=== PATIENT | male | born 1960 | race Caucasian/White ===

== ENCOUNTER 2019-02-20 18:03 | Emergency (ER) | payer BC, OTHER ==
[~2019-02-20] VITALS: Ht 190.5 cm; Wt 113.4 kg
--- OUTSIDE RECORDS SUMMARY | ~2019-02-20 | XMS | Encounter Summary ---
Demographics + + + | Address | [address] | | | [place] [address] | + + + | Home Phone | | + + + | Preferred Language | Unknown | + + + | Marital Status | | + + + | Mandaen Affiliation | Unknown | + + + | Race | Unknown | + + + | Ethnic Group | Unknown | + + + Author + + + | Author | [facility] | | | and [place] | + + + | Organization | [facility] | | | and [place] | + + + | Address | Unknown | + + + | Phone | Unavailable | + + + Support + + +---------+ + | Name | Relationship | Address | Phone | + + +---------+ + | Dio Filkins | ECON | Unknown | | + + +---------+ + | Dio Rivera | ECON | Unknown | | + + +---------+ + Care Team Providers + +------+ + | Care Photographic Equipment Inspector Name | Role | Phone | + +------+ + | Edgardo Boone DO | PCP | | + +------+ + Reason for Visit + + + | Reason | Comments | + + + | Medication Refill | | + + + Encounter Details +--------+--------+ + + + | Date | Type | Department | Care Team | Description | +--------+--------+ + + + | 08/14/ | Refill | [facility] | Edgardo Boone | Medication Refill | | 2018 | | [facility] | E, DO [address] | | | | | MEDICAL CLIN[address] | [place], [place] | | | | | [address] [place], | [address] | | | | | [place] [address] | [phone] | | | | | [phone] | | | +--------+--------+ + + + Social History + +-------+ +--------+------+ | Tobacco Use | Types | Packs/Day | Years | Date | | | | | Used | | + +-------+ +--------+------+ | Never Smoker | | | | | + +-------+ +--------+------+ + +---+---+---+ | Smokeless Tobacco: | | | | | Never Used | | | | + +---+---+---+ + + +---------+ + | Alcohol Use | Drinks/Week | oz/Week | Comments | + + +---------+ + | No | 1 Glasses of wine | 1.0 | 1/2 glass of wine | | | | | daily | + + +---------+ + + + + | Sex Assigned at | Date Recorded | | | | + + + | Not on file | | + + + + + + + | Job Start Date | Occupation | Industry | + + + + | Not on file | Not on file | Not on file | + + + + + + + + | Travel History | Travel Start | Travel End | + + + + + + | No recent travel history available. | + + documented as of this encounter Plan of Treatment + +------+--------+ + + | Name | Type | Priori | Associated Diagnoses | Order Schedule | | | | ty | | | + +------+--------+ + + | Comprehensive | Lab | Routin | Benign | 1 Occurrences | | Metabolic Panel | | e | hypertension | starting 08/14/2018 | | | | | Hyperlipidemia, | until 08/15/2019 | | | | | unspecified | | | | | | hyperlipidemia type | | | | | | Type 2 diabetes | | | | | | mellitus without | | | | | | complication, | | | | | | without long-term | | | | | | current use of | | | | | | insulin ([facility]) | | + +------+--------+ + + | Hemoglobin A1C | Lab | Routin | Type 2 diabetes | 1 Occurrences | | | | e | mellitus without | starting 08/14/2018 | | | | | complication, | until 08/15/2019 | | | | | without long-term | | | | | | current use of | | | | | | insulin ([facility]) | | + +------+--------+ + + | Microalbumin/Creatin | Lab | Routin | Type 2 diabetes | 1 Occurrences | | ine Ratio, Urine | | e | mellitus without | starting 08/14/2018 | | | | | complication, | until 08/15/2019 | | | | | without long-term | | | | | | current use of | | | | | | insulin ([facility]) | | + +------+--------+ + + | CBC with | Lab | Routin | Abnormal blood | 1 Occurrences | | Differential | | e | chemistry Screening | starting 08/14/2018 | | | | | for deficiency | until 08/15/2019 | | | | | anemia | | + +------+--------+ + + | Urinalysis with | Lab | Routin | Type 2 diabetes | 1 Occurrences | | Microscopic with | | e | mellitus without | starting 08/14/2018 | | Culture if Indicated | | | complication, | until 08/15/2019 | | | | | without long-term | | | | | | current use of | | | | | | insulin (HCC) | | | | | | Enlarged prostate | | + +------+--------+ + + | PSA, Screen | Lab | Routin | Enlarged prostate | 1 Occurrences | | | | e | Screening for | starting 08/14/2018 | | | | | prostate cancer | until 08/15/2019 | + +------+--------+ + + documented as of this encounter Procedures + +--------+ + + + | Procedure Name | Priori | Date/Time | Associated Diagnosis | Comments | | | ty | | | | + +--------+ + + + | EXTERNAL LAB: | Routin | 12/19/2017 | | Results for this | | HEMOGLOBIN A1C | e | | | procedure are in the | | | | | | results section. | + +--------+ + + + documented in this encounter Results External Lab: Hemoglobin A1c (12/19/2017) + + + + + + | Component | Value | Ref Range | Performed | Pathologist | | | | | At | Signature | + + + + + + | Hemoglobin | 5.8Comment: [facility] | % | | | | A1c, | | | | | | external | | | | | + + + + + + + + | Specimen | + + | Blood | + + documented in this encounter Visit Diagnoses + + | Diagnosis | + + | Benign hypertension - Primary Essential hypertension, benign | + + | Hyperlipidemia, unspecified hyperlipidemia type | + + | Type 2 diabetes mellitus without complication, without long-term current use of | | insulin (HCC) | + + | Abnormal blood chemistry Other abnormal blood chemistry | + + | Enlarged prostate Hypertrophy of prostate without urinary obstruction and other lower | | urinary tract symptoms (LUTS) | + + | Screening for deficiency anemia Screening for other and unspecified deficiency anemia | + + | Screening for prostate cancer Special screening for malignant neoplasm of prostate | + + documented in this encounter"
--- OUTSIDE RECORDS SUMMARY | ~2019-02-20 | XMS | Encounter Summary ---
Demographics + + + | Address | [address] | | | [place] [address] | + + + | Home Phone | | + + + | Preferred Language | Unknown | + + + | Marital Status | | + + + | Sabianism Affiliation | Unknown | + + + | Race | Unknown | + + + | Ethnic Group | Unknown | + + + Author + + + | Author | [facility] | | | and [place] | + + + | Organization | [facility] | | | and [...] Team Providers + +------+ + | Care Plant Machinist Name | Role | Phone | + [...] Description | +--------+--------+ + + + | 06/02/ | Refill | [facility] | Edgardo Boone | Medication Refill | | 2018 | | [facility] | E, DO [address] | | | | | MEDICAL CL[facility] | [place], [place] | | | | | [address] [place], | [address] | | | | | [place] [address] | [phone] | | | | | [phone] | | | +--------+--------+ + + + [...] as of this encounter Plan of Treatment Not on filedocumented as of this encounter Visit Diagnoses Not on filedocumented in this encounter"
--- OUTSIDE RECORDS SUMMARY | ~2019-02-20 | XMS | Encounter Summary ---
Demographics + + + | Address | [address] | | | [place] [address] | + + + | Home Phone | | + + + | Preferred Language | Unknown | + + + | Marital Status | | + + + | Methodist Affiliation | Unknown | + + + | Race | Unknown | + + + | Ethnic Group | Unknown | + + + Author + + + | Author | [facility] | | | and [place] | + + + | Organization | [facility] | | | and [...] Team Providers + +------+ + | Care Underwriting Clerks Supervisor Name | Role | Phone | + [...] Description | +--------+--------+ + + + | 01/27/ | Refill | [facility] | Pranay Godinez, | Medication Refill | | 2018 | | [facility] | DNP [address] | | | | | MEDICAL CLIN[address] | [place] [address] | | | | | [address] [place], | [phone] | | | | | [place] [address] | | | | | | [phone] | | | +--------+--------+ + + + [...] | | | + +---+---+---+ + + + + + | Alcohol Use | Drinks/Week | oz/Week | Comments | + + + + + | Yes | 0-1 Glasses of | 0.0 - 1.0 | | | | wine | | | + + + + + + + + + | Alcohol Habits | Answer | Date Recorded | + + + + | How often do you have a drink containing | Monthly or less | 08/29/2018 | | alcohol? | | | + + + + | How many drinks containing alcohol do you | 1 or 2 | 08/29/2018 | | have on a typical day when you are | | | | drinking? | | | + + + + | How often do you have six or more drinks on | Never | 08/29/2018 | | one occasion? | | | + + + + + + + | Sex Assigned [...] filedocumented as of this encounter Visit Diagnoses + + | Diagnosis | + + | Benign hypertension Essential hypertension, benign | + + documented in this encounter"
--- OUTSIDE RECORDS SUMMARY | ~2019-02-20 | XMS | Encounter Summary ---
Demographics + + + | Address | [address] | | | [place] [address] | + + + | Home Phone | | + + + | Preferred Language | Unknown | + + + | Marital Status | | + + + | Taoist Affiliation | Unknown | + + + [...] Team Providers + +------+ + | Care Crown Pouncer Name | Role | Phone | + [...] Description | +--------+--------+ + + + | 04/17/ | Refill | [facility] | Dunbar, Azeb Case RN | Medication Refill | | 2018 | | [facility] | | | | | | [facility] [address] | | | | | | [address] [facility], | | | | | | [place] [address] | | | | | | [phone] | | | +--------+--------+ + + + [...]
--- OUTSIDE RECORDS SUMMARY | ~2019-02-20 | XMS | Encounter Summary ---
Demographics + + + | Address | [address] | | | [place] [address] | + + + | Home Phone | | + + + | Preferred Language | Unknown | + + + | Marital Status | | + + + | Mu-Ism Affiliation | Unknown | + + + | Race | Unknown | + + + | Ethnic Group | Unknown | + + + Author + + + | Author | [facility] | | | and [place] | + + + | Organization | [facility] | | [...] Team Providers + +------+ + | Care Superintendent Marine Name | Role | Phone | + +------+ + | Edgardo Boone DO | PCP | | + +------+ + Encounter Details +--------+ + + + + | Date | Type | Department | Care Team | Description | +--------+ + + + + | 01/13/ | Abstract | [facility] | Mely Edgardo | | | 2017 | | [facility] | E, DO [address] | | | | | MEDICAL CLIN[address] | [place], [place] | | | | | [address] [place], | [address] | | | | | [place] [address] | [phone] | | | | | [phone] | | | +--------+ + + + + Social History + +-------+ +--------+------+ | Tobacco Use | Types | Packs/Day | Years | Date | | | | | Used | | + +-------+ +--------+------+ | Never Assessed | | | | | + +-------+ +--------+------+ + + + | Sex Assigned at [...] Not on filedocumented as of this encounter Procedures + +--------+ + + + | Procedure Name | Priori | Date/Time | Associated Diagnosis | Comments | | | ty | | | | + +--------+ + + + | EXTERNAL: | Routin | 04/28/2015 | | Results for this | | COLONOSCOPY | e | | | procedure are in the | | | | | | results section. | + +--------+ + + + documented in this encounter Results EXTERNAL: COLONOSCOPY (04/28/2015) + + + + + + | Component | Value | Ref Range | Performed | Pathologist | | | | | At | Signature | + + + + + + | Colonoscopy | Hyperplastic polyp and | | | | | | left-sided sigmoid | | | | | Impression, | diverticulosisComment: | | | | | External | [facility] | | | | | | [facility] | | | | + + + + + + documented in this encounter Visit Diagnoses Not on filedocumented in this encounter"
--- OUTSIDE RECORDS SUMMARY | ~2019-02-20 | XMS | Clinical Summary ---
Demographics + + + | Address | [address] | | | [place] [address] | + + + | Home Phone | | + + + | Preferred Language | Unknown | + + + | Marital Status | Single | + + + | Yazdanism Affiliation | Unknown | + + + | Race | Unknown | + + + | Ethnic Group | Unknown | + + + Author + + + | Author | [facility] (Historical as of | | | 10-04-18) | + + + | Organization | [facility] (Historical as of | | | 10-04-18) | + + + | Address | Unknown | + + + | Phone | Unavailable | + + + Support + + +---------+ + | Name | Relationship | Address | Phone | + + +---------+ + | Dio Rivera | ECON | Unknown | | + + +---------+ + Care Team Providers + +------+ + | Care Horn Player Name | Role | Phone | + +------+ + | Dr. Dustin | PP | Unavailable | + +------+ + Allergies Not on File Current Medications Not on file Active Problems Not on file Social History + +-------+ +--------+------+ | Tobacco [...] on file | | + + + Plan of Treatment Not on file Results Not on filefrom Last 3 Months"
--- OUTSIDE RECORDS SUMMARY | ~2019-02-20 | XMS | Clinical Summary ---
Demographics + + + | Address | [address] | | | [place] [address] | + + + | Home Phone | | + + + | Preferred Language | Unknown | + + + | Marital Status | Single | + + + | Mosque Affiliation | Unknown | + + + | Race | Unknown | + + + | Ethnic Group | Unknown | + + + Author + + + | Author | [facility] (Historical as of | | | 10-04-18) | + + + | Organization | [facility] (Historical as of | | | 10-04-18) [...] Team Providers + +------+ + | Care Industrial Locomotive Operator Name | Role | Phone | + [...]
--- OUTSIDE RECORDS SUMMARY | ~2019-02-20 | XMS | Encounter Summary ---
Demographics + + + | Address | [address] | | | [place] [address] | + + + | Home Phone | | + + + | Preferred Language | Unknown | + + + | Marital Status | | + + + | Protestant Affiliation | Unknown | + + + | Race | Unknown | + + + | Ethnic Group | Unknown | + + + Author + + + | Author | [facility] | | | and [place] | + + + | Organization | [facility] | | | [...] Team Providers + +------+ + | Care Guest Service Agent Name | Role | Phone | + +------+ + | Edgardo Boone DO | PCP | | + +------+ + Reason for Visit + + + | Reason | Comments | + + + | Establish Care | | + + + Encounter Details +--------+---------+ + + + | Date | Type | Department | Care Team | Description | +--------+---------+ + + + | 01/17/ | Office | [facility] | Edgardo Boone | Benign hypertension | | 2018 | Visit | [facility] | E, DO [address] | (Primary Dx); | | | | MEDICAL CLIN[facility] [address] | [place], [place] | Primary open angle | | | | [address] [place], | [address] | glaucoma (POAG) of | | | | [place] [address] | [phone] | both eyes, mild | | | | [phone] | | stage; | | | | | | Onychomycosis; Type | | | | | | 2 diabetes mellitus | | | | | | without | | | | | | complication, | | | | | | without long-term | | | | | | current use of | | | | | | insulin (HCC); Sleep | | | | | | apnea, unspecified | | | | | | type | +--------+---------+ + + + Social History + +-------+ [...] + + documented as of this encounter Last Filed Vital Signs + + + + + | Vital Sign | Reading | Time Taken | Comments | + + + + + | Blood Pressure | 118/76 | 01/17/2018 2:18 PM | | | | | PST | | + + + + + | Pulse | 84 | 01/17/2018 2:18 PM | | | | | PST | | + + + + + | Temperature | - | - | | + + + + + | Respiratory Rate | 18 | 01/17/2018 2:18 PM | | | | | PST | | + + + + + | Oxygen Saturation | 98% | 01/17/2018 2:18 PM | | | | | PST | | + + + + + | Inhaled Oxygen | - | - | | | Concentration | | | | + + + + + | Weight | 113.5 kg (250 lb 3.2 | 01/17/2018 2:18 PM | | | | oz) | PST | | + + + + + | Height | 190.5 cm (6' 3") | 01/17/2018 2:18 PM | | | | | PST | | + + + + + | Body Mass Index | 31.27 | 01/17/2018 2:18 PM | | | | | PST | | + + + + + documented in this encounter Progress Notes Edgardo Boone DO - 01/17/2018 2:30 PM PST Patient ID: Clyde Rivera is a 57 y.o. year old male Chief Complaint: Chief Complaint Patient presents with Establish Care Assessment Benign hypertension (Primary) - Losartan Potassium-HCTZ; Take 1 tablet by mouth Daily. Dispense: 90 tablet; Refill: 3 Primary open angle glaucoma (POAG) of both eyes, mild stage Onychomycosis - Itraconazole; Take 2 capsules by mouth Daily. Dispense: 60 capsule; Refill: 3 - Comprehensive Metabolic Panel; Future; Expected date: 03/21/2018 Type 2 diabetes mellitus without complication, without long-term current use of insulin ([facility]) Sleep apnea, unspecified type Plan -Start taking Losartan-HCTZ combined pill daily -Stop taking the Losartan individual pill -Stop taking the HCTZ individual pill -Start Itraconazole 200 mg daily for 12 weeks -Repeat blood work March 21 60 minute visit with > 50% time spent in counseling. Subjective: MAX Tang presents to the clinic today to re-establish care with me from [facility], and discuss His blood pressure has a low of 115/75 and high of 155/95. He is down 12 pounds since August. He has changed his eating habits. He has cut out a little bit of carbohydrates. He was diagnosed with Glaucoma, his pressure is controlled. 5-7 years ago, he saw me with foot rot. He has been using Genteal jaguar. He is still have issues on his big toe right foot. When he wakes up his legs are really itchy, he has started putting on lotion at night, whic h has seemed to help the itch. Current Outpatient Prescriptions Medication Sig Dispense Refill albuterol (PROAIR HFA) 90 mcg/puff inhaler Inhale 2 puffs into the lungs every 6 hours as needed for Wheezing. aspirin (ASPIRIN ADULT LOW DOSE) 81 MG EC tablet Take by mouth Daily. hydroCHLOROthiazide 25 mg tablet Take 25 mg by mouth Daily. Lactobacillus (ACIDOPHILUS) 0.5 MG TABS Acidophilus losartan (COZAAR) 100 MG tablet Take 100 mg by mouth Daily. lovastatin (MEVACOR) 10 MG tablet Take 10 mg by mouth nightly. metFORMIN (GLUCOPHAGE-XR) 500 mg 24 hr tablet Take 500 mg by mouth daily (with breakfas t). Misc Natural Products (PUMPKIN SEED OIL) CAPS Take by mouth. Multiple Vitamins-Minerals (CENTRUM SILVER 50+MEN PO) Centrum Silver ONE TOUCH ULTRA TEST strip 0 Saw Deaver 1000 MG CAPS Take by mouth. No current facility-administered medications for this visit. Patient Active Problem List Diagnosis Hyperlipidemia Enlarged prostate Dysmetabolic syndrome X Benign hypertension Abnormal blood chemistry Dyspeptic diarrhea Rectal hemorrhage Primary open angle glaucoma (POAG) of both eyes, mild stage Type 2 diabetes mellitus without complication, without long-term current use of insulin Sleep apnea Family History Problem Relation Age of Onset Diabetes Father Diabetes Other Past Surgical History: Procedure Laterality Date COLONOSCOPY 04/28/2015 LEFT KNEE SURGERY Social History Social History Marital status: Spouse name: N/A Number of children: N/A Years of education: N/A Occupational History Not on file. Social History Main Topics Smoking status: Never Smoker Smokeless tobacco: Never Used Alcohol use No Comment: 1/2 glass of wine daily Drug use: No Sexual activity: Not on file Other Topics Concern Not on file Social History Narrative No narrative on file No Known Allergies Review of Systems Constitutional: Negative for appetite change, fatigue and fever. Eyes: Trouble seeing fine print Respiratory: Negative for cough, chest tightness and shortness of breath. Cardiovascular: Negative for chest pain and palpitations. Gastrointestinal: Negative for abdominal pain, diarrhea and nausea. Musculoskeletal: Negative for back pain and neck pain. Skin: Big toe right foot, fungal Neurological: Negative for light-headedness and headaches. Objective: Vitals: BP 118/76 | Pulse 84 | Resp 18 | Ht 1.905 m (6' 3") | Wt 113.5 kg (250 lb 3.2 oz) | Sp O2 98% | BMI 31.27 kg/m Physical Exam Constitutional: He appears well-developed and well-nourished. Eyes: Pupils are equal, round, and reactive to light. Cardiovascular: Normal rate, regular rhythm and normal heart sounds. Pulmonary/Chest: Effort normal and breath sounds normal. Neurological: He is alert. Psychiatric: He has a normal mood and affect. Entered by Nomi Dowling, acting as scribe for Dr. Mely DO. The documentation recorded by the scribe accurately reflects the service I personally perfo rmed and the decisions made by me. Dr. Edgardo Boone DO. 01/17/2018 15:08Electronically signed by DO giovani Workman t 01/17/2018 3:22 PM PSTdocumented in this encounter Plan of Treatment Not on filedocumented as of this encounter Visit Diagnoses + + | Diagnosis | + + | Benign hypertension - Primary Essential hypertension, benign | + + | Primary open angle glaucoma (POAG) of both eyes, mild stage | + + | Onychomycosis Dermatophytosis of nail | + + | Type 2 diabetes mellitus without complication, without long-term current use of | | insulin (HCC) | + + | Sleep apnea, unspecified type | + + documented in this encounter
--- OUTSIDE RECORDS SUMMARY | ~2019-02-20 | XMS | Encounter Summary ---
Demographics + + + | Address | [address] | | | [place] [address] | + + + | Home Phone | | + + + | Preferred Language | Unknown | + + + | Marital Status | | + + + | Orthodoxy Affiliation | Unknown | + + + | Race | Unknown | + + + | Ethnic Group | Unknown | + + + Author + + + | Author | [facility] | | | and [place] | + + + | Organization | [facility] | | | [...] Team Providers + +------+ + | Care Editing Internship Name | Role | Phone | + +------+ + | Edgardo Boone DO | PCP | | + +------+ + Reason for Visit + + + | Reason | Comments | + + + | Lab Order | | + + + Encounter Details +--------+ + + + + | Date | Type | Department | Care Team | Description | +--------+ + + + + | 04/09/ | Telephone | [facility] | Harshal Benitez, | Lab Order | | 2019 | | [facility] | GEODETIC SURVEY DIRECTOR | | | | | MEDICAL CLINIC [address] | | | | | | [address] [facility] [place], | | | | | | [place] [address] | | | | | | [phone] | | | +--------+ + + + [...] | + +--------+ + + + | COMPREHENSIVE | Routin | 04/09/2018 | | Results for this | | METABOLIC PANEL | e | 8:20 AM | | procedure are in the | | | | PST | | results section. | + +--------+ + + + documented in this encounter Results Comprehensive Metabolic Panel (04/09/2018 8:20 AM PST) + + + + + + | Component | Value | Ref Range | Performed | Pathologist | | | | | At | Signature | + + + + + + | Sodium | 140 | 132 - 143 | REFERENCE | | | | | | LAB | | | | | | [facility] | | + + + + + + | Potassium | 4.3 | 3.6 - 5.1 | REFERENCE | | | | | | LAB | | | | | | [facility] | | + + + + + + | Chloride | 102 | 95 - 112 | REFERENCE | | | | | | LAB | | | | | | [facility] | | + + + + + + | Carbon | 26 | 19 - 31 | REFERENCE | | | dioxide | | | LAB | | | | | | [facility] | | + + + + + + | Anion Gap | 16.3 | 7 - 21 | REFERENCE | | | | | | LAB | | | | | | [facility] | | + + + + + + | Glucose | 116 (H) | 70 - 100 | REFERENCE | | | | | | LAB | | | | | | [facility] | | + + + + + + | BUN | 21 | 6 - 23 | REFERENCE | | | | | | LAB | | | | | | [facility] | | + + + + + + | Creatinine | 0.99 | 0.70 - 1.33 | REFERENCE | | | | | | LAB | | | | | | [facility] | | + + + + + + | GFR | 77 | | REFERENCE | | | ESTIMATE | | | LAB | | | (REF) | | | [facility] | | + + + + + + | BUN/Creatin | 21.2 | 6.0 - 28.6 | REFERENCE | | | ine Ratio | | | LAB | | | | | | [facility] | | + + + + + + | Calcium | 9.6 | 8.5 - 10.3 | REFERENCE | | | | | | LAB | | | | | | [facility] | | + + + + + + | AST (SGOT) | 18 | 13 - 39 | REFERENCE | | | (REF) | | | LAB | | | | | | [facility] | | + + + + + + | ALT (SGPT) | 28 | 7 - 52 | REFERENCE | | | (REF) | | | LAB | | | | | | [facility] | | + + + + + + | ALK PHOS | 61 | 31 - 120 | REFERENCE | | | | | | LAB | | | | | | [facility] | | + + + + + + | BILIRUBIN, | 0.5 | 0.0 - 1.2 | REFERENCE | | | TOTAL | | | LAB | | | | | | [facility] | | + + + + + + | Protein, | 7.2 | 6.0 - 8.3 | REFERENCE | | | Total | | | LAB | | | | | | [facility] | | + + + + + + | Albumin | 4.4 | 3.5 - 5.0 | REFERENCE | | | | | | LAB | | | | | | [facility] | | + + + + + + | Globulin | 2.8 | 1.8 - 3.5 | REFERENCE | | | | | | LAB | | | | | | [facility] | | + + + + + + | A/G Ratio | 1.6Comment: | 1.1 - 2.4 | REFERENCE | | | | ESTIMATED GFR Reference | | LAB | | | | Range:GFR = Less than | | [facility] | | | | 60: Chronic Kidney | | | | | | Disease, if found over a | | | | | | 3 month period.GFR = | | | | | | Less than 15: Kidney | | | | | | Failure.For | | | | | | Americans, multiply the | | | | | | calculated GFR by | | | | | | 1.21.GFR calculation is | | | | | | not valid for patients | | | | | | under age 18 years.For | | | | | | patients over age 70 | | | | | | please interpret results | | | | | | with caution as results | | | | | | have not been validated | | | | | | for this calculation | | | | | | method Please Note:Total | | | | | | Protein Reference range | | | | | | change as of | | | | | | 07/08/2017.Please Note: | | | | | | Calcium reference range | | | | | | change as of 09/05/2017. | | | | + + + + + + + + | Specimen | + + | | + + + + + | Narrative | Performed At | + + + | Testing Performed at: [facility] [place] CLIA: [id number] - 3075 | REFERENCE LAB | | [place] [address] | [facility] | + + + + + + + + | Performing | Address | City/State/Zipcode | Phone Number | | Organization | | | | + + + + + | REFERENCE LAB | [address] | [place] [address] | [phone] | | [facility] | | | | + + + + + | REFERENCE LAB | [address] | [place] [address] | [phone] | | [facility] | | | | + + + + + documented in this encounter Visit Diagnoses Not on filedocumented in this encounter"
--- OUTSIDE RECORDS SUMMARY | ~2019-02-20 | XMS | Encounter Summary ---
Demographics + + + | Address | [address] | | | [place] [address] | + + + | Home Phone | | + + + | Preferred Language | Unknown | + + + | Marital Status | | + + + | Pentecostalism Affiliation | Unknown | + + + | Race | Unknown | + + + | Ethnic Group | Unknown | + + + Author + + + | Author | [facility] | | | and [place] | + + + | Organization | [facility] | | [...] Team Providers + +------+ + | Care Studio Designer Name | Role | Phone | + [...] Description | +--------+--------+ + + + | 04/21/ | Refill | [facility] | Radha Oconnor, | Medication Refill | | 2018 | | [facility] | [facility] TECHNICAL SPECIALIST | | | | | MEDICAL CLIN[facility] [address] | | | | | | [address] [facility], | | | | | | [place] [address] | | | | | | [phone] | | | +--------+--------+ + + + [...]
--- OUTSIDE RECORDS SUMMARY | ~2019-02-20 | XMS | Encounter Summary ---
Demographics + + + | Address | [address] | | | [place] [address] | + + + | Home Phone | | + + + | Preferred Language | Unknown | + + + | Marital Status | | + + + | Episcopal Affiliation | Unknown | + + + | Race | Unknown | + + + | Ethnic Group | Unknown | + + + Author + + + | Author | [facility] | | | and [place] | + + + | Organization | [facility] | | | and [place] | + + + | Address | Unknown | + + + | Phone | Unavailable | + + + Support + + +---------+ + | Name | Relationship | Address | Phone | + + +---------+ + | Ido Filkins | ECON | Unknown | | + + +---------+ + | Dio Rivera | ECON | Unknown | | + + +---------+ + Care Team Providers + +------+ + | Care Skirt Maker Name | Role | Phone | + [...] Lab Order | | 2019 | | [facility] | [address] | | | | | MEDICAL CLINIC [address] | | | | | | [address] [facility] [place], | | | | | | [place] [address] | | | | | | [phone] | | | +--------+ + + + [...] + + + | Testing Performed at: [facility] CLIA: [id number] - [id number] | REFERENCE LAB | | [place] [address] | [facility] | + + + + + + + + | Performing | Address | City/State/Zipcode | Phone Number | | Organization | | | | + + + + + | REFERENCE LAB | [address] | [place] [address] | [phone] | | [facility] | | | | + + + + + | REFERENCE LAB | [address] | [place] [address] | [phone] | | [facility] | | | | + + + + + documented in this encounter Visit Diagnoses Not on filedocumented in this encounter"
--- OUTSIDE RECORDS SUMMARY | ~2019-02-20 | XMS | Encounter Summary ---
Demographics + + + | Address | [address] | | | [place] [address] | + + + | Home Phone | | + + + | Preferred Language | Unknown | + + + | Marital Status | | + + + | Episcopalian Affiliation | Unknown | + + + | Race | Unknown | + + + | Ethnic Group | Unknown | + + + Author + + + | Author | [facility] | | | and [place] | + + + | Organization | [facility] | | [...] Team Providers + +------+ + | Care Casualty Claims Supervisor Name | Role | Phone | + +------+ + | Edgardo Boone DO | PCP | | + +------+ + Encounter Details +--------+ + + + + | Date | Type | Department | Care Team | Description | +--------+ + + + + | 01/16/ | Abstract | [facility] | Nomi Dowling | | | 2017 | | [facility] | | | | | | MEDICAL CLINIC [address] | | | | | | [address] [place], | | | | | | [place] [address] | | | | | | [phone] | | | +--------+ + + + [...] Comments | + + +---------+ + | Yes | 1 Glasses of wine | 1.0 [...]
--- OUTSIDE RECORDS SUMMARY | ~2019-02-20 | XMS | Encounter Summary ---
Demographics + + + | Address | [address] | | | [place] [address] | + + + | Home Phone | | + + + | Preferred Language | Unknown | + + + | Marital Status | | + + + | Denominational Affiliation | Unknown | + + + | Race | Unknown | + + + | Ethnic Group | Unknown | + + + Author + + + | Author | [facility] | | | and [place] | + + + | Organization | [facility] | | | and [...] Team Providers + +------+ + | Care Staff Research Associate Name | Role | Phone | + +------+ + | Edgardo Boone DO | PCP | | + +------+ + Encounter Details +--------+ + + + + | Date | Type | Department | Care Team | Description | +--------+ + + + + | 01/13/ | Abstract | [facility] | Mely Edgardo | | | 2017 | | [facility] | E, DO [address] | | | | | MEDICAL CLINIC [address] | [place], [place] | | | | | [address] [place], | [address] | | | | | [place] [address] | [phone] | | | | | [phone] | | | +--------+ + + + [...]
--- OUTSIDE RECORDS SUMMARY | ~2019-02-20 | XMS | Encounter Summary ---
Demographics + + + | Address | [address] | | | [place] [address] | + + + | Home Phone | | + + + | Preferred Language | Unknown | + + + | Marital Status | | + + + | Zoroastrianism Affiliation | Unknown | + + + | Race | Unknown | + + + | Ethnic Group | Unknown | + + + Author + + + | Author | [facility] | | | and [place] | + + + | Organization | [facility] | | | and [...] Team Providers + +------+ + | Care Drilling Manager Name | Role | Phone | + +------+ + | Edgardo Boone DO | PCP | | + +------+ + Reason for Visit + + + | Reason | Comments | + + + | Medication Prior | Itraconazole 100 mg | | Authorization | | + + + Encounter Details +--------+ + + + + | Date | Type | Department | Care Team | Description | +--------+ + + + + | 01/22/ | Telephone | [facility] | Edgardo Boone | Medication Prior | | 2017 | | [facility] | E, DO [address] | Authorization | | | | MEDICAL CLINIC [address] | [place], [place] | (Itraconazole 100 mg | | | | [address] [place], | [address] | ) | | | | [place] [address] | [phone] | | | | | [phone] | | | +--------+ + + + [...]
--- OUTSIDE RECORDS SUMMARY | ~2019-02-20 | XMS | Encounter Summary ---
Demographics + + + | Address | [address] | | | [place] [address] | + + + | Home Phone | | + + + | Preferred Language | Unknown | + + + | Marital Status | | + + + | Scientology Affiliation | Unknown | + + + | Race | Unknown | + + + | Ethnic Group | Unknown | + + + Author + + + | Author | [facility] | | | and [place] | + + + | Organization | [facility] | | [...] Team Providers + +------+ + | Care Headwaiter/Headwaitress Name | Role | Phone | + +------+ + | Edgardo Boone DO | PCP | | + +------+ + Reason for Visit + + + | Reason | Comments | + + + | Lab Results | Anemia | + + + Encounter Details +--------+---------+ + + + | Date | Type | Department | Care Team | Description | +--------+---------+ + + + | 08/29/ | Office | [facility] | Edgardo Boone | Low hemoglobin and | | 2019 | Visit | [facility] | E, DO [address] | low hematocrit | | | | MEDICAL CLINIC [address] | [place] | (Primary Dx) | | | | [address] [place], | [address] | | | | | [place] [address] | [phone] | | | | | [phone] | | | +--------+---------+ + + + Social History + +-------+ +--------+------+ | Tobacco Use | Types | Packs/Day | Years | Date | | | | | Used | | + +-------+ +--------+------+ | Never Smoker | | | | | + +-------+ +--------+------+ + +---+---+---+ | Smokeless Tobacco: | | | | | Never Used | | | | + +---+---+---+ + + | Tobacco Cessation: Counseling Given: No | + + + + + + [...] + + + | Blood Pressure | 128/74 | 08/29/2018 3:18 PM | Large cuff, right | | | | PDT | arm | + + + + + | Pulse | 62 | 08/29/2018 3:18 PM | Reg | | | | PDT | | + + + + + | Temperature | - | - | | + + + + + | Respiratory Rate | 18 | 08/29/2018 3:18 PM | | | | | PDT | | + + + + + | Oxygen Saturation | 97% | 08/29/2018 3:18 PM | RA | | | | PDT | | + + + + + | Inhaled Oxygen | - | - | | | Concentration | | | | + + + + + | Weight | 112.9 kg (248 lb | 08/29/2018 3:18 PM | | | | 12.8 oz) | PDT | | + + + + + | Height | 190.5 cm (6' 3") | 08/29/2018 3:18 PM | Stated | | | | PDT | | + + + + + | Body Mass Index | 31.1 | 08/29/2018 3:18 PM | | | | | PDT | | + + + + + documented in this encounter Progress Notes Edgardo Boone DO - 08/29/2018 4:00 PM PDT Patient ID: Juan Carlos Rivera is a 58 y.o. year old male Chief Complaint: Chief Complaint Patient presents with Lab Results Anemia Assessment and Plan: 1. Low hemoglobin and low hematocrit -I am relieved that he is donating blood. Advised him to not donate blood until we repeat t he CBC at the end of September. Subjective: HPI: Patient presents to the clinic for anemia follow up. On Hemoglobin was 13.2, Hematocrit was 40.1, and Platelet count was 109. He is O+ b lood and donates blood religiously every 2 months and has for years. He last donated on 06/19 07/06 and planned to donate again on 09/11/18. Current Outpatient Medications Medication Sig Dispense Refill albuterol (PROAIR HFA) 90 mcg/puff inhaler Inhale 2 puffs into the lungs every 6 hours as needed for Wheezing. aspirin (ASPIRIN ADULT LOW DOSE) 81 MG EC tablet Take by mouth Daily. Lactobacillus (ACIDOPHILUS) 0.5 MG TABS Acidophilus losartan-hydrochlorothiazide (HYZAAR) 100-25 MG per tablet Take 1 tablet by mouth Daily . 90 tablet 3 lovastatin (MEVACOR) 10 MG tablet Take 10 mg by mouth nightly. metFORMIN (GLUCOPHAGE-XR) 500 mg 24 hr tablet Take 1 tablet by mouth daily (with breakf ast). 90 tablet 3 Misc Natural Products (PUMPKIN SEED OIL) CAPS Take by mouth. Multiple Vitamins-Minerals (CENTRUM SILVER 50+MEN PO) Centrum Silver ONE TOUCH ULTRA TEST strip 0 Saw [place] 1000 MG CAPS Take by mouth. No [...] COLONOSCOPY 04/28/2015 LEFT KNEE SURGERY Social History Socioeconomic History Marital status: Spouse name: Not on file Number of children: Not on file Years of education: Not on file Highest education level: Not on file Social Needs Financial resource strain: Not on file Food insecurity - worry: Not on file Food insecurity - inability: Not on file Transportation needs - medical: Not on file Transportation needs - non-medical: Not on file Occupational History Not on file Tobacco Use Smoking status: Never Smoker Smokeless tobacco: Never Used Substance and Sexual Activity Alcohol use: Yes Alcohol/week: 0.0 - 0.6 oz Frequency: Monthly or less Drinks per session: 1 or 2 Binge frequency: Never Drug use: No Sexual activity: Yes Partners: Female control/protection: Post-menopausal Other Topics Concern Not on file Social History Narrative Not on file No Known Allergies Review of Systems Constitutional: Negative. Respiratory: Negative. Cardiovascular: Negative. Psychiatric/Behavioral: Negative. Objective: Vitals: BP 128/74 Comment: Large cuff, right arm | Pulse 62 Comment: Reg | Resp 18 | Ht 1.905 m (6 ' 3") Comment: Stated | Wt 112.9 kg (248 lb 12.8 oz) | SpO2 97% Comment: RA | BMI 31.10 kg/ m Physical Exam Constitutional: He is oriented to person, place, and time. He appears well-developed and we ll-nourished. HENT: Head: Normocephalic and atraumatic. Cardiovascular: Normal rate, regular rhythm and normal heart sounds. Pulmonary/Chest: Effort normal and breath sounds normal. Neurological: He is alert and oriented to person, place, and time. Psychiatric: He has a normal mood and affect. His behavior is normal. Judgment and thought content normal. Entered by Amber Burroughs CNA 2, [facility], acting as scribe for Dr. Mely DO The documentation recorded by the scribe accurately reflects the service I personally perfo ed and the decisions made by me. Electronically signed by: Dr. Edgardo Boone DO 08/29/2018 15:51 documented in this encounter Plan of Treatment + +------+--------+ + + | Name | Type | Priori | Associated Diagnoses | Order Schedule | | | | ty | | | + +------+--------+ + + | CBC with | Lab | Routin | Low hemoglobin and | Expected: | | Differential | | e | low hematocrit | 10/13/2018, Expires: | | | | | | 08/30/2019 | + +------+--------+ + + documented as of this encounter Procedures + +--------+ + + + | Procedure Name | Priori | Date/Time | Associated Diagnosis | Comments | | | ty | | | | + +--------+ + + + | LIPID PANEL | Routin | 10/14/2018 | | Results for this | | | e | 7:46 AM | | procedure are in the | | | | PDT | | results section. | + +--------+ + + + | CBC WITH | Routin | 10/14/2018 | | Results for this | | DIFFERENTIAL | e | 7:46 AM | | procedure are in the | | | | PDT | | results section. | + +--------+ + + + documented in this encounter Results CBC with Differential (10/14/2018 7:46 AM PDT) + + + + + + | Component | Value | Ref Range | Performed | Pathologist | | | | | At | Signature | + + + + + + | WBC | 5.0 | 4.5 - 11.0 | REFERENCE | | | | | | LAB | | | | | | [facility] | | + + + + + + | RBC Count | 5.04 | 4.3 - 5.7 | REFERENCE | | | | | | LAB | | | | | | [facility] | | + + + + + + | Hemoglobin | 13.5 | 13.5 - 18.0 | REFERENCE | | | | | | LAB | | | | | | [facility] | | + + + + + + | Hct | 40.9 (L) | 41 - 50 | REFERENCE | | | | | | LAB | | | | | | [facility] | | + + + + + + | MCV | 81.2 | 81 - 99 | REFERENCE | | | | | | LAB | | | | | | [facility] | | + + + + + + | RDW | 15.1 (H) | 10.5 - 15.0 | REFERENCE | | | | | | LAB | | | | | | [facility] | | + + + + + + | MCH | 27 | 27 - 33 | REFERENCE | | | | | | LAB | | | | | | [facility] | | + + + + + + | MCHC | 33 | 30 - 36 | REFERENCE | | | | | | LAB | | | | | | [facility] | | + + + + + + | Platelet | 104 (L) | 140 - 440 | REFERENCE | | | Count | | | LAB | | | | | | [facility] | | + + + + + + | % | 47.4 | 39 - 80 | REFERENCE | | | Neutrophils | | | LAB | | | | | | [facility] | | + + + + + + | % | 35.3 | 24 - 44 | REFERENCE | | | Lymphocytes | | | LAB | | | | | | [facility] | | + + + + + + | Monocyte % | 10.4 | 0 - 12 | REFERENCE | | | | | | LAB | | | | | | [facility] | | + + + + + + | Eosinophils | 5.7 | 0 - 6 | REFERENCE | | | % | | | LAB | | | | | | [facility] | | + + + + + + | Basophils % | 1.2Comment: A technical | 0 - 2 | REFERENCE | | | | smear review was | | LAB | | | | performed. The following | | [facility] | | | | has been found:RBC | | | | | | MORPHOLOGY: Normal Few | | | | | | Macroplatelets | | | | | | | | | | + + + + + + + + | Specimen | + + | | + + + + + | Narrative | Performed At | + + + | Testing Performed at: [facility] CLIA: [id number] - [address] | REFERENCE LAB | | [place] [address] | [facility] | + + + + + + + + | Performing | Address | City/State/Zipcode | Phone Number | | Organization | | | | + + + + + | REFERENCE LAB | [address] | [place] [address] | [phone] | | [facility] | | | | + + + + + | REFERENCE LAB | [address] | [place] [address] | [phone] | | [facility] | | | | + + + + + Lipid Panel (10/14/2018 7:46 AM PDT) + + + + + + | Component | Value | Ref Range | Performed | Pathologist | | | | | At | Signature | + + + + + + | Cholesterol | 158 | OPT: <200 | REFERENCE | | | | | | LAB | | | | | | [facility] | | + + + + + + | Triglycerid | 118 | 30 - 150 | REFERENCE | | | es | | | LAB | | | | | | [facility] | | + + + + + + | HDL | 36.6 (L) | OPT: >40 | REFERENCE | | | Cholesterol | | | LAB | | | | | | [facility] | | + + + + + + | LDL | 98 | OPT: <100 | REFERENCE | | | Cholesterol | | | LAB | | | | | | [facility] | | + + + + + + | Cholesterol | 24 | 4 - 40 | REFERENCE | | | in VLDL | | | LAB | | | | | | [facility] | | + + + + + + | Chol/HDL | 4.3 | OPT: <4.97 | REFERENCE | | | Ratio | | | LAB | | | | | | [facility] | | + + + + + + | Non-HDL | 121 | OPT: <130 | REFERENCE | | | Cholesterol | | | LAB | | | | | | [facility] | | + + + + + + + + | Specimen | + + | | + + + + + | Narrative | Performed At | + + + | Testing Performed at: [facility] CLIA: [id number] - [address] | REFERENCE LAB | | [place] [address] | [facility] | + + + + + + + + | Performing | Address | City/State/Zipcode | Phone Number | | Organization | | | | + + + + + | REFERENCE LAB | [address] | [place] [address] | [phone] | | [facility] | | | | + + + + + | REFERENCE LAB | [address] | [place] [address] | [phone] | | [facility] | | | | + + + + + documented in this encounter Visit Diagnoses + + | Diagnosis | + + | Low hemoglobin and low hematocrit - Primary | + + documented in this encounter
--- OUTSIDE RECORDS SUMMARY | ~2019-02-20 | XMS | Encounter Summary ---
Demographics + + + | Address | [address] | | | [place] [address] | + + + | Home Phone | | + + + | Preferred Language | Unknown | + + + | Marital Status | | + + + | Congregational Affiliation | Unknown | + + + [...] Team Providers + +------+ + | Care Slot Floor Supervisor Name | Role | Phone | [...] Description | +--------+--------+ + + + | 01/28/ | Refill | [facility] | Nomi Dowling | Medication Refill | | 2017 | | [facility] | | | | | | MEDICAL CLIN[facility] [address] | | | | | | [address] [facility], | | | | | | [place] [address] | | | | | | [phone] | | | +--------+--------+ + + + [...] + | Diagnosis | + + | Onychomycosis Dermatophytosis of nail | + + documented in this encounter"
--- OUTSIDE RECORDS SUMMARY | ~2019-02-20 | XMS | Encounter Summary ---
Demographics + + + | Address | [address] | | | [place] [address] | + + + | Home Phone | | + + + | Preferred Language | Unknown | + + + | Marital Status | | + + + | Hindu Affiliation | Unknown | + + + | Race | Unknown | + + + | Ethnic Group | Unknown | + + + Author + + + | Author | [facility] | | | and [place] | + + + | Organization | [facility] | | | [...] Team Providers + +------+ + | Care Pastry Cook Name | Role | Phone | + [...] Description | +--------+--------+ + + + | 03/31/ | Refill | [facility] | Edgardo Boone | Medication Refill | | 2018 | | [facility] | E, DO [address] | | | | | MEDICAL CLINIC [address] | [place], [place] | | | | | [address] [place], | [address] | | | | | [place] [address] | [phone] | | | | | [phone] | | | +--------+--------+ + + + [...] | Comprehensive | Lab | Routin | Onychomycosis | Expected: | | Metabolic Panel | | e | | 03/31/2018, Expires: | | | | | | 05/29/2018 | + +------+--------+ + + documented as of this encounter Visit Diagnoses + + | Diagnosis | + + | High risk medication use - Primary Encounter for long-term (current) use of other | | medications | + + | Onychomycosis Dermatophytosis of nail | + + documented in this encounter"
--- OUTSIDE RECORDS SUMMARY | ~2019-02-20 | XMS | Encounter Summary ---
Demographics + + + | Address | [address] | | | [place] [address] | + + + | Home Phone | | + + + | Preferred Language | Unknown | + + + | Marital Status | | + + + | Jehovah'S Witness Affiliation | Unknown | + + + | Race | Unknown | + + + | Ethnic Group | Unknown | + + + Author + + + | Author | [facility] | | | and [place] | + + + | Organization | [facility] | | | [...] Team Providers + +------+ + | Care Climatologist Name | Role | Phone | + [...] and | | 2019 | Visit | [facility] | E, DO [address] | low hematocrit | | | | MEDICAL [facility] [address] | [place] | (Primary Dx) | | | | [address] [place], | [address] | | | | | [place] [address] | [phone] | | | | | [phone] | | | +--------+---------+ + + + [...] ONE TOUCH ULTRA TEST strip 0 Saw Battiest 1000 MG CAPS Take by mouth. No [...] normal. Entered by Amber Burroughs CNA 2, [facility], acting as scribe for Dr. Mely DO [...] Testing Performed at: [facility] CLIA: [id number] - [address] | REFERENCE LAB | | [place] [address] | [facility] | + + + + + + + + | Performing | Address | City/State/Zipcode | Phone Number | | Organization | | | | + + + + + | REFERENCE LAB | [address] | [place] [address] | [phone] | | [facility] | | | | + + + + + | REFERENCE LAB | [address] | [place] [address] | [phone] | | [facility] | | | | [...] Testing Performed at: [facility] CLIA: [id number] - [address] | REFERENCE LAB | | [place] [address] | [facility] | + + + + + + + + | Performing | Address | City/State/Zipcode | Phone Number | | Organization | | | | + + + + + | REFERENCE LAB | [address] | [place] [address] | [phone] | | [facility] | | | | + + + + + | REFERENCE LAB | [address] | [place] [address] | [phone] | | [facility] | | | | + + + + + documented in this encounter Visit Diagnoses + + | Diagnosis | + + | Low hemoglobin and low hematocrit - Primary | + + documented in this encounter
--- OUTSIDE RECORDS SUMMARY | ~2019-02-20 | XMS | Clinical Summary ---
Demographics + + + | Address | [address] | | | [place] [address] | + + + | Home Phone | | + + + | Preferred Language | Unknown | + + + | Marital Status | Single | + + + | Restoration Affiliation | Unknown | + + + | Race | Unknown | + + + | Ethnic Group | Other Race | + + + Author + + + | Author | [facility] | + + + | Organization | [facility] | + + + | Address | Unknown | + + + | Phone | Unavailable | + + + Care Team Providers + +------+ + | Care Paper Rewinder Operator Name | Role | Phone | + +------+ + PCP | Unavailable | + +------+ + Source Comments [facility] is fully live on both [facility] and [facility] In[facility] Allergies Not on File Medications Not on file Active Problems Not [...] recent travel history available. | + + Last Filed Vital Signs Not on file Plan of Treatment + + + + + | Health Maintenance | Due Date | Last Done | Comments | + + + + + | Influenza (Flu) | | | | | vaccination (#1) | 9 | | | + + + + + | Pneumococcal | Aged Out | | No longer eligible | | vaccination | | | based on patient's | | | | | age to complete this | | | | | topic | + + + + + Results Not on filefrom Last 3 Months Insurance + +--------+ +--------+-------+---------+------+ | Payer | Benefi | Subscriber | Effect | Phone | Address | Type | | | t Plan | ID | aleshia | | | | | | / | | Dates | | | | | | Group | | | | | | + +--------+ +--------+-------+---------+------+ | [employer] | FIRST | xxxxxxxxx | 08/18/18 | | | PPO | | | CHOICE | | 99-Pre | | | | | | | | sent | | | | | | HEALTH | | | | | | + +--------+ +--------+-------+---------+------+ + +--------+ +--------+ + + | Guarantor Name | Accoun | Relation to | Date | Phone | Billing Address | | | t Type | Patient | of | | | | | | | | | | + +--------+ +--------+ + + | Juan Carlos Rivera | Person | Self | [birth year] | [address] | | | al/Fam | | 1960 | [phone] | [place] [address] | | | juwan | | | 5 (Home) | | + +--------+ +--------+ + +"
--- OUTSIDE RECORDS SUMMARY | ~2019-02-20 | XMS | Encounter Summary ---
Demographics + + + | Address | [address] | | | [place] [address] | + + + | Home Phone | | + + + | Preferred Language | Unknown | + + + | Marital Status | | + + + | Tenriism Affiliation | Unknown | + + + | Race | Unknown | + + + | Ethnic Group | Unknown | + + + Author + + + | Author | [facility] | | | and [place] | + + + | Organization | [facility] | | [...] Team Providers + +------+ + | Care Pediatric Critical Care Nurse Name | Role | Phone | + +------+ + | Edgardo Boone DO | PCP | | + +------+ + Reason for Visit +--------+ + | Reason | Comments | +--------+ + | LABS | Reminder | +--------+ + Encounter Details +--------+ + + + + | Date | Type | Department | Care Team | Description | +--------+ + + + + | 02/19/ | Telephone | [facility] | Edgardo Boone | LABS (Reminder ) | | 2020 | | [facility] | E, DO [address] | | | | | MEDICAL CLIN[facility] [address] | [place], [place] | | | | | [address] [place], | [address] | | | | | [place] [address] | [phone] | | | | | [phone] | | | +--------+ + + + [...] with | Lab | Routin | Abnormal CBC | 1 Occurrences | | Differential | | e | Anemia With Low | starting 02/19/2019 | | | | | Platelet Count (Hcc) | until 02/20/2020 | + +------+--------+ + + documented as of this encounter Visit Diagnoses + + | Diagnosis | + + | Abnormal CBC - Primary Other abnormal blood chemistry | + + | Dyspeptic diarrhea Diarrhea | + + | Rectal hemorrhage Hemorrhage of rectum and anus | + + | Anemia with low platelet count (HCC) | + + documented in this encounter"
--- OUTSIDE RECORDS SUMMARY | ~2019-02-20 | XMS | Encounter Summary ---
Demographics + + + | Address | [address] | | | [place] [address] | + + + | Home Phone | | + + + | Preferred Language | Unknown | + + + | Marital Status | | + + + | Restorationist Affiliation | Unknown | + + + | Race | Unknown | + + + | Ethnic Group | Unknown | + + + Author + + + | Author | [facility] | | | and [place] | + + + | Organization | [facility] | | | [...] Team Providers + +------+ + | Care Taxi Truck Driver Name | Role | Phone | + +------+ + | Edgardo Bonoe DO | PCP | | + +------+ + Reason for Visit + + + | Reason | Comments | + + + | Lab Order | | + + + Encounter Details +--------+ + + + + | Date | Type | Department | Care Team | Description | +--------+ + + + + | 12/03/ | Telephone | [facility] | Edgrado Boone | Lab Order | | 2018 | | [facility] | E, DO [address] | | | | | MEDICAL CLINIC [address] | [facility] [place] | | | | | [address] [place], | [address] | | | | | [place] [address] | [phone] | | | | | [phone] | | | +--------+ + + + [...] PSA, Screen | Lab | Routin | Prostate cancer | Expected: | | | | e | screening | 12/03/2017, Expires: | | | | | | 03/05/2018 | + +------+--------+ + + | Hemoglobin A1C | Lab | Routin | Physical exam, | Expected: | | | | e | annual | 12/03/2017, Expires: | | | | | | 03/05/2018 | + +------+--------+ + + documented as of this encounter Procedures + +--------+ + + + | Procedure Name | Priori | Date/Time | Associated Diagnosis | Comments | | | ty | | | | + +--------+ + + + | PSA, SCREEN | Routin | 12/19/2017 | | Results for this | | | e | 7:50 AM | | procedure are in the | | | | PDT | | results section. | + +--------+ + + + | HEMOGLOBIN A1C | Routin | 12/19/2017 | | Results for this | | | e | 7:50 AM | | procedure are in the | | | | PDT | | results section. | + +--------+ + + + | COMPREHENSIVE | Routin | 12/19/2017 | | Results for this | | METABOLIC PANEL | e | 7:50 AM | | procedure are in the | | | | PDT | | results section. | + +--------+ + + + documented in this encounter Results Hemoglobin A1C (12/19/2017 7:50 AM PDT) + + + + + + | Component | Value | Ref Range | Performed | Pathologist | | | | | At | Signature | + + + + + + | Hemoglobin | 5.8 | | REFERENCE | | | A1c | | | LAB | | | | | | [facility] | | + + + + + + | Estimated | 120Comment: | | REFERENCE | | | Average | Reference Range for | | LAB | | | Glucose | HEMOGLOBIN A1c: | | [facility] | | | | Non-Diabetic | | | | | | <5.7% | | | | | | Increased Risk for | | | | | | Diabetes 5.7% - 6.4% | | | | | | Diagnostic for | | | | | | Diabetes >6.4 | | | | | | Diabetic Goal | | | | | | <7.0%These | | | | | | values are for | | | | | | non- individuals | | | | | | according to the | | | | | | [place] [employer] | | | | | | Association. 'Diabetes | | | | | | Care. | | | | | | 2009;33(suppl):S15-S61.' | | | | | | Hb A1C results may be | | | | | | falsely decreased in the | | | | | | presence of conditions | | | | | | that shorten red cell | | | | | | survival such as the | | | | | | presence of unstable | | | | | | hemoglobins or hemolytic | | | | | | anemia. Results may be | | | | | | falsely elevated in the | | | | | | presence of Iron | | | | | | deficiency anemia. | | | | + + + + + + + + | Specimen | + + | | + + + + + | Narrative | Performed At | + + + | Testing Performed at: [facility] CLIA: [id number] - 8982 | REFERENCE LAB | | [place] [address] | [facility] | + + + + + + + + | Performing | Address | City/State/Zipcode | Phone Number | | Organization | | | | + + + + + | REFERENCE LAB | [address] [facility] [address] [facility] [address] | [place] [address] | [phone] | | [facility] | | | | + + + + + | REFERENCE LAB | [address] [facility] [address] | [place] [address] | [phone] | | [facility] | | | | + + + + + Comprehensive [employer] Panel (12/19/2017 7:50 AM PDT) + + + + + + | Component | Value | Ref Range | Performed | Pathologist | | | | | At | Signature | + + + + + + | Sodium | 141 | 132 - 143 | REFERENCE | | | | | | LAB | | | | | | [facility] | | + + + + + + | Potassium | 4.2 | 3.6 - 5.1 | REFERENCE | | | | | | LAB | | | | | | [facility] | | + + + + + + | Chloride | 104 | 95 - 112 | REFERENCE | [...] + + + | Anion Gap | 15.2 | 7 - 21 | REFERENCE | | | | | | LAB | | | | | | [facility] | | + + + + + + | Glucose | 108 (H) | 70 - 100 | REFERENCE | | | | | | LAB | | | | | | [facility] | | + + + + + + | BUN | 26 (H) | 6 - 23 | REFERENCE | | | | | | LAB | | | | | | [facility] | | + + + + + + | Creatinine | 1.13 | 0.70 - 1.33 | REFERENCE | | | | | | LAB | | | | | | [facility] | | + + + + + + | GFR | 66 | | REFERENCE | | | ESTIMATE | | | LAB | | | (REF) | | | [facility] | | + + + + + + | BUN/Creatin | 23.0 | 6.0 - 28.6 | REFERENCE | | | ine Ratio | | | LAB | | | | | | [facility] | | + + + + + + | Calcium | 9.8 | 8.5 - 10.3 | REFERENCE | | | | | | LAB | | | | | | [facility] | | + + + + + + | AST (SGOT) | 17 | 13 - 39 | REFERENCE | | | (REF) | | | LAB | | | | | | [facility] | | + + + + + + | ALT (SGPT) | 29 | 7 - 52 | REFERENCE | | | (REF) | | | LAB | | | | | | [facility] | | + + + + + + | ALK PHOS | 54 | 31 - 120 | REFERENCE | [...] + + + + | Protein, | 6.9 | 6.0 - 8.3 | REFERENCE | [...] + + + + | Globulin | 2.5 | 1.8 - 3.5 | REFERENCE | | | | | | LAB | | | | | | [facility] | | + + + + + + | A/G Ratio | 1.8Comment: | 1.1 - 2.4 | REFERENCE | [...] Testing Performed at: [facility] CLIA: [id number] - 7361 | REFERENCE LAB | | [place] [address] | [facility] | + + + + + + + + | Performing | Address | City/State/Zipcode | Phone Number | | Organization | | | | + + + + + | REFERENCE LAB | [address] [facility] [facility] | [place] [address] | [phone] | | [facility] | | | | + + + + + | REFERENCE LAB | [address] [facility] | [place] [address] | [phone] | | [facility] | | | | + + + + + Gilberto LEE (12/19/2017 7:50 AM PDT) + + + + + + | Component | Value | Ref Range | Performed | Pathologist | | | | | At | Signature | + + + + + + | PSA, Total | 0.618Comment: The Ryan | 0.0 - 4.0 | REFERENCE | | | | e601 PSA | | LAB | | | | electrochemiluminescent | | [facility] | | | | immunoassay is the test | | | | | | methodology used. | | | | | | Results obtained with | | | | | | different assay methods | | | | | | or kits cannot be used | | | | | | interchangeably. The | | | | | | Ryan e601 PSA method is | | | | | | approved for use as an | | | | | | aid in the detection of | | | | | | prostate cancer when | | | | | | used in conjunction with | | | | | | a digital rectal exam | | | | | | in men age 50 and older. | | | | | | The Ryan e601 PSA is | | | | | | also indicated for the | | | | | | serial measurement of | | | | | | PSA to aid in the | | | | | | prognosis and management | | | | | | of prostate cancer | | | | | | patients. Elevated PSA | | | | | | concentrations can only | | | | | | suggest the presence of | | | | | | prostate cancer until | | | | | | biopsy is performed. PSA | | | | | | concentrations can also | | | | | | be elevated in benign | | | | | | prostatic hyperplasia or | | | | | | inflammatory conditions | | | | | | of the prostate. PSA is | | | | | | generally not elevated | | | | | | in healthy men or men | | | | | | with non-prostatic | | | | | | carcinoma. Biotin in | | | | | | specimens taken from | | | | | | patients on high-dose | | | | | | biotin therapy or | | | | | | supplements may intefere | | | | | | with this test and | | | | | | cause inaccurate test | | | | | | results. It is | | | | | | recommended that for | | | | | | patients receiving | | | | | | therapy with high biotin | | | | | | doses (> 5 mg/day), no | | | | | | laboratory test specimen | | | | | | should be collected | | | | | | until at least 8 hours | | | | | | after the last biotin | | | | | | administration. | | | | + + + + + + + + | Specimen | + + | | + + + + + | Narrative | Performed At | + + + | Testing Performed at: [facility] CLIA: [id number] - 0640 | REFERENCE LAB | | [place] [address] | [facility] | + + + + + + + + | Performing | Address | City/State/Zipcode | Phone Number | | Organization | | | | + + + + + | REFERENCE LAB | [address] | [place] [address] | [phone] | | [facility] | | | | + + + + + | REFERENCE LAB | [address] | [place] [address] | [phone] | | [facility] | | | | + + + + + documented in this encounter Visit Diagnoses + + | Diagnosis | + + | Physical exam, annual - Primary Routine general medical examination at [facility] | | facility | + + | Screamer's node Other diseases of vocal cords | + + | Prostate cancer screening Special screening for malignant neoplasm of prostate | + + documented in this encounter"
--- OUTSIDE RECORDS SUMMARY | ~2019-02-20 | XMS | Encounter Summary ---
Demographics + + + | Address | [address] | | | [place] [address] | + + + | Home Phone | | + + + | Preferred Language | Unknown | + + + | Marital Status | Single | + + + | Voodoo Affiliation | Unknown | + + + | Race | Unknown | + + + | Ethnic Group | Other Race | + + + Author + + + | Author | [facility] | + + + | Organization | [facility] | + + + | Address | Unknown | + + + | Phone | Unavailable | + + + Care Team Providers + +------+ + | Care Wool Hat Hydraulicker Name | Role | Phone | + +------+ + PCP | Unavailable | + +------+ + Encounter Details +--------+ + + + + | Date | Type | Department | Care Team | Description | +--------+ + + + + | 07/28/ | Results | NON-[facility] | Sony Lewis, | | | 2010 | Only | Department | [facility] [place] | | | | | | CLINIC DER[facility]OLOG[facility] | | | | | | [address] | | | | | | [place] | | | | | | [address] | | | | | | | | +--------+ + + + [...] | + +--------+ + + + | DERMATOPATHOLOGY(CON | Routin | 07/28/2010 | | Results for this | | SULT) | e | | | procedure are in the | | | | | | results section. | + +--------+ + + + documented in this encounter Results DERMATOPATHOLOGY(CONSULT) (07/28/2010) + + + + + + | Component | Value | Ref Range | Performed | Pathologist | | | | | At | Signature | + + + + + + | DERMATOPATH | SOURCE OF SPECIMEN:A | | [facility] | | | (CONSULT) | CONSULTATION | | DERMATOPATH | | | | CLINICAL | | OLOGY | | | | DESCRIPTION:Punch 3mm, | | | | | | Rt. 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 Ruy Mckay | | | | | | [place]: | | | | | | Thank you for asking | | | | | | us to review Juan Carlos | | | | | | Filkins' right upper | | | | | | lipbiopsy. As you | | | | | | described, there is an | | | | | | unusual neoplasm | | | | | | characterized bycolumns | | | | | | of epithelial cells with | | | | | | connection of vellus | | | | | | follicles extendinginto | | | | | | the upper dermis and | | | | | | with follicular germs at | | | | | | the deep extension | | | | | | inthe absence of | | | | | | follicular papillae. | | | | | | There are numerous small | | | | | | horn cystswithin the | | | | | | epithelial collections. | | | | | | There is mild nuclear | | | | | | pleomorphism ofthe | | | | | | epithelial nuclei as | | | | | | well as moderate solar | | | | | | elastosis. 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 | | | | | | The findings are | | | | | | unconventional although | | | | | | consonant with BASAL | | | | | | CELLCARCINOMA, | | | | | | INFUNDIBULOCYSTIC TYPE. | | | | | | An unusual follicular | | | | | | hamartoma isunlikely | | | | | | given the absence of | | | | | | isthmic and matrical | | | | | | elements in | | | | | | theepithelial | | | | | | collections. In view of | | | | | | the unconventional | | | | | | findings andextension of | | | | | | the neoplasm to the | | | | | | surgical margins, | | | | | | additional treatment | | | | | | toinsure its complete | | | | | | removal would be | | | | | | prudent. Thank you | | | | | | for referring this | | | | | | challenging | | | | | | consultation.1 slide | | | | | | ([id number]) | | | | | | returned to Dr. Lewis. | | | | | | CRW:emr08/09/10 | | | | | | My electronic | | | | | | signature indicates that | | | | | | I have personally | | | | | | reviewed alldiagnostic | | | | | | slides, the gross and/or | | | | | | microscopic portion of | | | | | | thisreport and | | | | | | formulated the final | | | | | | diagnosis. | | | | | | Rendering Diagnostician: | | | | | | Ross Kelly Jr., | | | | | | | | | | | | MNicolePathologistElectroni | | | | | | rufus Signed 08/09/2010 | | | | | | 5:53PM | | | | + + + + + + + + | Specimen | + + | | + + + + + + + | Performing | Address | City/State/Zipcode | Phone Number | | Organization | | | | + + + + + | [facility] | [address] | [place] [address] | | | DERMATOPATHOLOGY | [address] | | | + + + + + documented in this encounter Visit Diagnoses Not on filedocumented in this encounter"
--- OUTSIDE RECORDS SUMMARY | ~2019-02-20 | XMS | Encounter Summary ---
Demographics + + + | Address | [address] | | | [place] [address] | + + + | Home Phone | | + + + | Preferred Language | Unknown | + + + | Marital Status | | + + + | Christian Affiliation | Unknown | + + + | Race | Unknown | + + + | Ethnic Group | Unknown | + + + Author + + + | Author | [facility] | | | and [place] | + + + | Organization | [facility] | | | [...] Team Providers + +------+ + | Care Ironer Hand Name | Role | Phone | + +------+ + | Edgardo Boone DO | PCP | | + +------+ + Reason for Visit + + + | Reason | Comments | + + + | Appointment | | + + + Encounter Details +--------+ + + + + | Date | Type | Department | Care Team | Description | +--------+ + + + + | 08/26/ | Telephone | [facility] | Edgardo Boone | Appointment | | 2019 | | [facility] | E, DO [address] | | | | | MEDICAL CL[facility] [address] | [place], [place] | | | | | [address] [place], | [address] | | | | | [place] [address] | [phone] | | | | | [phone] | | | +--------+ + + + [...]
--- OUTSIDE RECORDS SUMMARY | ~2019-02-20 | XMS | Encounter Summary ---
Demographics + + + | Address | [address] | | | [place] [address] | + + + | Home Phone | | + + + | Preferred Language | Unknown | + + + | Marital Status | | + + + | Mosque Affiliation | Unknown | + + + | Race | Unknown | + + + | Ethnic Group | Unknown | + + + Author + + + | Author | [facility] | | | and [place] | + + + | Organization | [facility] | | | [...] Team Providers + +------+ + | Care Pharmaceutical Representative Name | Role | Phone | + [...] | | | MED[facility] [address] | [place], [place] | | | | [address] [facility], | [address] | | | | | [place] [address] | [phone] | | | | | [phone] | | | +--------+ + + + [...]
--- OUTSIDE RECORDS SUMMARY | ~2019-02-20 | XMS | Encounter Summary ---
Demographics + + + | Address | [address] | | | [place] [address] | + + + | Home Phone | | + + + | Preferred Language | Unknown | + + + | Marital Status | | + + + | Sikh Affiliation | Unknown | + + + | Race | Unknown | + + + | Ethnic Group | Unknown | + + + Author + + + | Author | [facility] | | | and [place] | + + + | Organization | [facility] | | | and [place] | + + + | Address | Unknown | + + + | Phone | Unavailable | + + + Support + + +---------+ + | Name | Relationship | Address | Phone | + + +---------+ + | Dio Filkins | ECON | Unknown | | + + +---------+ + | Dio Nicole | ECON | Unknown | | + + +---------+ + Care Team Providers + +------+ + | Care Bender Machine Name | Role | Phone | + +------+ + PCP | Unavailable | + +------+ + Encounter Details +--------+ + + + + | Date | Type | Department | Care Team | Description | +--------+ + + + + | 01/09/ | Emergency | [facility] | Harriet Jimenez, | Injury of face and | | 2009 - | | [facility]ICAL [facility]ENTER | MD [address] | neck | | | | EMERGENCY CENTER | [place], [place] | | | 01/10/ | | [address] | [address] | | | 2009 | | [place], [place] | | | | | | [address] | | | | | | [phone] | | | +--------+ + + + [...] | + +--------+ + + + | CT CERVICAL SPINE WO | Routin | 01/10/2010 | | Results for this | | CONTRAST | e | 1:19 AM | | procedure are in the | | | | PST | | results section. | + +--------+ + + + | XR CERVICAL SPINE 2 | Routin | 01/09/2010 | | Results for this | | OR 3 VIEWS | e | 11:32 PM | | procedure are in the | | | | PST | | results section. | + +--------+ + + + documented in this encounter Results CT Cervical Spine wo Contrast (01/10/2010 1:19 AM PST) + + | Specimen | + + | | + + + + + | Narrative | Performed At | + + + | [facility] [address] Ph: | | | Patient Name: JUAN CARLOS METCALF Date of : | | | 1960 Medical Record: [id number] Account: [id number] | | | Exam Date/Time: 01/09/2010 23:49 Ordering | | | Physician: HARRIET JIMENEZ Order Detail: [id number] Exam Description: | | | CT CERVICAL SPINE | | | | | | CERVICAL SPINE CT WITHOUT CONTRAST HISTORY: Pain after injury. | | | TECHNIQUE: Axial noncontrast images were obtained. Coronal and | | | sagittal reconstructions were performed on the acquisition scanner. | | | FINDINGS: Alignment is normal. No fracture or dislocation is seen. | | | No prevertebral soft tissue swelling is noted. There is incomplete | | | segmentation at C7-T1. Degenerative changes are seen, especially at | | | C5-C6 and C6-C7. Posterior disk-osteophyte complex at C6-C7 may | | | impinge the spinal cord. IMPRESSION: 1. No acute cervical spine | | | abnormality seen. 2. Degenerative changes, most severe at C5-C6 and | | | C6-C7. 3. 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 Read by Patric Rivers MD | | | on 01/10/2010 at 01:45. | | + + + + + | Procedure Note | + + | Roman Castaneda - 10/12/2018 1:07 PM PDT | | [facility] | | [facility] [address] | | | | | | Patient Name: JUAN CARLOS METCALF | | Date of : 1960 | | Medical Record: [id number] | | Account: [id number] | | | | | | Exam Date/Time: 01/09/2010 23:49 | | Ordering Physician: HARRIET JIMENEZ | | Order Detail: [id number] | | Exam Description: CT CERVICAL SPINE | | | | CERVICAL SPINE CT WITHOUT CONTRAST | | | | HISTORY: Pain after injury. | | | | TECHNIQUE: Axial noncontrast images were obtained. Coronal and sagittal | | reconstructions were performed on the acquisition scanner. | | | | FINDINGS: Alignment is normal. No fracture or dislocation is seen. No | | prevertebral soft tissue swelling is noted. There is incomplete | | segmentation at C7-T1. Degenerative changes are seen, especially at C5-C6 | | and C6-C7. Posterior disk-osteophyte complex at C6-C7 may impinge the | | spinal cord. | | | | IMPRESSION: | | 1. No acute cervical spine abnormality seen. | | 2. Degenerative changes, most severe at C5-C6 and C6-C7. | | 3. 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 | | | | | | Read by Patric Rivers MD on 01/10/2010 at 01:45. | | | | | | | | | + + XR Cervical Spine 2 or 3 Views (01/09/2010 11:32 PM PST) + + | Specimen | + + | | + + + + + | Narrative | Performed At | + + + | [facility] [address] Ph: | | | Patient Name: JUAN CARLOS METCALF Date of : | | | 1960 Medical Record: [id number] Account: [id number] | | | Exam Date/Time: 01/09/2010 22:30 Ordering | | | Physician: HARRIET JIMENEZ Order Detail: [id number] Exam Description: | | | XR CERVICAL SPINE LMT 2-3V | | | | | | HISTORY: Neck pain. SCANNING PROTOCOL: Cervical spine 4 views. | | | FINDINGS: No comparison. Prevertebral soft tissues are normal in | | | thickness. There is no evidence of acute fracture or dislocation. | | | There is mild degenerative disk disease at C6/7. A small focus of | | | calcification is noted in the posterior soft tissues adjacent to the | | | spinous process of C6, consistent with an old soft tissue injury. | | | IMPRESSION: 1. No acute findings in the cervical spine. Please | | | see above for chronic abnormalities. | | + + + + + | Procedure Note | + + | Roman Castaneda Conversion - 10/12/2018 1:07 PM PDT | | [facility] | | [facility] [address] | | | | | | Patient Name: JUAN CARLOS METCALF | | Date of : 1960 | | Medical Record: [id number] | | Account: [id number] | | | | | | Exam Date/Time: 01/09/2010 22:30 | | Ordering Physician: HARRIET JIMENEZ | | Order Detail: [id number] | | Exam Description: XR CERVICAL SPINE LMT 2-3V | | | | HISTORY: | | Neck pain. | | | | SCANNING PROTOCOL: | | Cervical spine 4 views. | | | | FINDINGS: | | No comparison. Prevertebral soft tissues are normal in thickness. There | | is no evidence of acute fracture or dislocation. There is mild | | degenerative disk disease at C6/7. A small focus of calcification is noted | | in the posterior soft tissues adjacent to the spinous process of C6, | | consistent with an old soft tissue injury. | | | | IMPRESSION: | | 1. No acute findings in the cervical spine. Please see above for | | chronic abnormalities. | | | | | + + documented in this encounter Visit Diagnoses + + | Diagnosis | + + | Injury of face and neck | + + documented in this encounter"
--- OUTSIDE RECORDS SUMMARY | ~2019-02-20 | XMS | Encounter Summary ---
Demographics + + + | Address | [address] | | | [place] [address] | + + + | Home Phone | | + + + | Preferred Language | Unknown | + + + | Marital Status | Single | + + + | Protestant Affiliation | Unknown | + + + | Race | Unknown | + + + | Ethnic Group | Other Race | + + + Author + + + | Author | [facility] | + + + | Organization | [facility] | + + + | Address | Unknown | + + + | Phone | Unavailable | + + + Care Team Providers + +------+ + | Care Aed Trainer Name | Role | Phone | + [...] | | | | | [place] | | | | | | [address] | | | | | | | [...] slide | | | | | | ([id number]) | | | | | | received. Ruy Mckay | | | | | | [place]: | | | | | | Thank [...] slide | | | | | | ([id number]) | | | | | | returned [...] + + | [facility] | [address] | [place] [address] | | | DERMATOPATHOLOGY | [address] | | | + + + + + documented in this encounter Visit Diagnoses Not on filedocumented in this encounter"
--- OUTSIDE RECORDS SUMMARY | ~2019-02-20 | XMS | Encounter Summary ---
Demographics + + + | Address | [address] | | | [place] [address] | + + + | Home Phone | | + + + | Preferred Language | Unknown | + + + | Marital Status | | + + + | Advent Affiliation | Unknown | + + + | Race | Unknown | + + + | Ethnic Group | Unknown | + + + Author + + + | Author | [facility] | | | and [place] | + + + | Organization | [facility] | | [...] Team Providers + +------+ + | Care Pipe Liner Name | Role | Phone | + [...] Description | +--------+--------+ + + + | 07/28/ | Refill | [facility] | Edgardo Boone | Medication Refill | | 2018 | | [facility] | E, DO [address] | | | | | MEDICAL CLIN[facility] [address] | [place], [place] | | | | | [address] [place], | [address] | | | | | [place] [address] | [phone] | | | | | [phone] | | | +--------+--------+ + + + [...]
--- OUTSIDE RECORDS SUMMARY | ~2019-02-20 | XMS | Encounter Summary ---
Demographics + + + | Address | [address] | | | [place] [address] | + + + | Home Phone | | + + + | Preferred Language | Unknown | + + + | Marital Status | | + + + | Sabianism Affiliation | Unknown | + + + | Race | Unknown | + + + | Ethnic Group | Unknown | + + + Author + + + | Author | [facility] | | | and [place] | + + + | Organization | [facility] | | [...] Team Providers + +------+ + | Care Injection Mold Tooling Technician Name | Role | Phone | + [...] | [facility] | | | | | | MEDICAL CLIN[facility] [address] | | | | | | [address] [facility] [place] [place], | | | | | | [place] [address] | | | | | | [phone] | | | +--------+--------+ + + + [...]
--- OUTSIDE RECORDS SUMMARY | ~2019-02-20 | XMS | Encounter Summary ---
Demographics + + + | Address | [address] | | | [place] [address] | + + + | Home Phone | | + + + | Preferred Language | Unknown | + + + | Marital Status | | + + + | Jew Affiliation | Unknown | + + + | Race | Unknown | + + + | Ethnic Group | Unknown | + + + Author + + + | Author | [facility] | | | and [place] | + + + | Organization | [facility] | | | and [...] Team Providers + +------+ + | Care Cream Hauler Name | Role | Phone | + [...] 12/03/ | Telephone | [facility] | Edgardo Boone | Lab Order | | 2018 | | [facility] | E, DO [address] | | | | | MEDICAL CLIN[facility] [address] | [facility], [place] | | | | | [address] [place], | [address] | | | | | [place] [address] | [phone] | | | | | [phone] | | | +--------+ + + + [...] the | | | | | | [place] Diabetes | | | | | | [...] Testing Performed at: [facility] CLIA: [id number] | REFERENCE LAB | | [place] [address] | [facility] | + + + + + + + + | Performing | Address | City/State/Zipcode | Phone Number | | Organization | | | | + + + + + | REFERENCE LAB | [address] | [place] [address] | [phone] | | [facility] | | | | + + + + + | REFERENCE LAB | [address] | [place] [address] | [phone] | | [facility] | | | | + + + + + Comprehensive Lyfepoints Panel (12/19/2017 7:50 AM PDT) + + [...] Testing Performed at: [facility] CLIA: [id number] | REFERENCE LAB | | [place] [address] | [facility] | + + + + + + + + | Performing | Address | City/State/Zipcode | Phone Number | | Organization | | | | + + + + + | REFERENCE LAB | [address] | [place] [address] | [phone] | | [facility] | | | | + + + + + | REFERENCE LAB | [address] | [place] [address] | [phone] | | [facility] | | | | [...] + + + | Testing Performed at: [facility] CLIA: [id number] - [id number] | REFERENCE LAB | | [place] [address] | [facility] | + + + + + + + + | Performing | Address | City/State/Zipcode | Phone Number | | Organization | | | | + + + + + | REFERENCE LAB | [address] | [place] [address] | [phone] | | [facility] | | | | + + + + + | REFERENCE LAB | [address] | [place] [address] | [phone] | | [facility] | | | | + + + + + documented in this encounter Visit Diagnoses + + | Diagnosis | + + | Physical exam, annual - Primary Routine general medical examination at [facility] | | facility | + + | Screamer's node Other diseases of vocal cords | + + | Prostate cancer screening Special screening for malignant neoplasm of prostate | + + documented in this encounter"
--- OUTSIDE RECORDS SUMMARY | ~2019-02-20 | XMS | Encounter Summary ---
Demographics + + + | Address | [address] | | | [place] [address] | + + + | Home Phone | | + + + | Preferred Language | Unknown | + + + | Marital Status | | + + + | Muslim Affiliation | Unknown | + + + | Race | Unknown | + + + | Ethnic Group | Unknown | + + + Author + + + | Author | [facility] | | | and [place] | + + + | Organization | [facility] | | [...] Team Providers + +------+ + | Care Processor Grain Name | Role | Phone | + [...] hypertension | | 2018 | Visit | [facility] | E, DO [address] | (Primary Dx); | | | | MEDICAL CLINIC [address] | [place], [place] | Primary open angle | | | | [address] [place], | [address] | glaucoma (POAG) of | | | | [place] [address] | [phone] | both eyes, mild | | | | [phone] | | stage; | | | | [...] today to re-establish care with me from [facility], and discuss His blood pressure has [...] ONE TOUCH ULTRA TEST strip 0 Saw Venus 1000 MG CAPS Take by mouth. No [...]
--- OUTSIDE RECORDS SUMMARY | ~2019-02-20 | XMS | Clinical Summary ---
Demographics + + + | Address | [address] | | | [place] [address] | + + + | Home Phone | | + + + | Preferred Language | Unknown | + + + | Marital Status | | + + + | Sikhism Affiliation | Unknown | + + + | Race | Unknown | + + + | Ethnic Group | Unknown | + + + Author + + + | Author | [facility] | | | and [place] | + + + | Organization | [facility] | | | [...] Dio Rivera | ECON | Unknown | + | + + +---------+ + Care Team Providers + +------+ + | Care Post Production Assistant Name | Role | Phone | + +------+ + | Edgardo Boone DO | PCP | | + +------+ + Allergies No Known Allergies Medications + + + +---------+------+------+-------+ | Medication | Sig | Dispensed | Refills | Star | End | Statu | | | | | | t | Date | s | | | | | | Date | | | + + + +---------+------+------+-------+ | albuterol (PROAIR | Inhale 2 puffs into | | 0 | | | Activ | | HFA) 90 mcg/puff | the lungs every 6 | | | | | e | | inhaler | hours as needed for | | | | | | | | Wheezing. | | | | | | + + + +---------+------+------+-------+ | Misc Natural | Take by mouth. | | 0 | | | Activ | | Products (PUMPKIN | | | | | | e | | SEED OIL) CAPS | | | | | | | + + + +---------+------+------+-------+ | Saw Oxford 1000 | Take by mouth. | | 0 | | | Activ | | MG CAPS | | | | | | e | + + + +---------+------+------+-------+ | Multiple | Centrum Silver | | 0 | | | Activ | | Vitamins-Minerals | | | | | | e | | (CENTRUM SILVER | | | | | | | | 50+MEN PO) | | | | | | | + + + +---------+------+------+-------+ | ONE TOUCH ULTRA | | | 0 | 09/0 | | Activ | | TEST strip | | | | 8/20 | | e | | | | | | 18 | | | + + + +---------+------+------+-------+ | aspirin (ASPIRIN | Take by mouth | | 0 | | | Activ | | ADULT LOW DOSE) 81 | Daily. | | | | | e | | MG EC tablet | | | | | | | + + + +---------+------+------+-------+ | Lactobacillus | Acidophilus | | 0 | | | Activ | | (ACIDOPHILUS) 0.5 MG | | | | | | e | | TABS | | | | | | | + + + +---------+------+------+-------+ | metFORMIN | Take 1 tablet by | 90 | 3 | 06/2 | | Activ | | (GLUCOPHAGE-XR) 500 | mouth daily (with | tablet | | 7/20 | | e | | mg 24 hr | breakfast). | | | 19 | | | | tabletIndications: | | | | | | | | Type 2 diabetes | | | | | | | | mellitus without | | | | | | | | complication, | | | | | | | | without long-term | | | | | | | | current use of | | | | | | | | insulin (HCC) | | | | | | | + + + +---------+------+------+-------+ | lovastatin | Take 1 tablet by | 90 | 3 | 10/2 | | Activ | | (MEVACOR) 10 MG | mouth nightly. | tablet | | 20 | | e | | tablet | | | | 19 | | | + + + +---------+------+------+-------+ | | Take 1 tablet by | 90 | 3 | 12/ | | Activ | | losartan-hydrochloro | mouth Daily. | tablet | | 0/20 | | e | | thiazide (HYZAAR) | | | | 19 | | | | 100-25 MG per | | | | | | | | tabletIndications: | | | | | | | | Benign hypertension | | | | | | | + + + +---------+------+------+-------+ | | Take 1 tablet by | 90 | 3 | 07/19 | 01/18 | Disco | | losartan-hydrochloro | mouth Daily. | tablet | | 0/20 | 0/20 | ntinu | | thiazide (HYZAAR) | | | | 19 | 19 | ed | | 100-25 MG per | | | | | | (Reor | | tabletIndications: | | | | | | olga) | | Benign hypertension | | | | | | | + + + +---------+------+------+-------+ Active Problems + + + | Problem | Noted Date | + + + | Dyspeptic diarrhea | 01/17/2018 | + + + | Rectal hemorrhage | 01/17/2018 | + + + | Primary open angle glaucoma (POAG) of both eyes, mild stage | 01/17/2018 | + + + | Type 2 diabetes mellitus without complication, without long-term | 01/17/2018 | | current use of insulin | | + + + | Sleep apnea | 01/17/2018 | + + + | Hyperlipidemia | | + + + | Enlarged prostate | | + + + | Dysmetabolic syndrome X | | + + + | Benign hypertension | | + + + | Abnormal blood chemistry | | + + + Encounters +--------+ + + + + | Date | Type | Specialty | Care Team | Description | +--------+ + + + + | 02/19/ | Telephone | Primary Care | Edgardo Boone | LABS (Reminder ) | | 2019 | | | E, DO | | +--------+ + + + + | 01/27/ | Refill | Primary Care | Pranay Godinez, | Medication Refill | | 2018 | | | DNP | | +--------+ + + + + from Last 3 Months Immunizations + + + + | Name | Administration Dates | Next Due | + + + + | CAMRYN PF 18-64 | 11/21/2017 | | | YRS,QUAD INTRADERMAL | | | + + + + | INFLUENZA PF 18 Y [place] | 11/21/2017, 12/11/2016, 11/08/2015, | | | >,TRIVALENT | 12/09/2013 | | | RECOMBINANT | | | + + + + | INFLUENZA PF | 11/21/2017, 12/11/2016, 11/08/2015 | | | QUAD(PED/ADOL/ADULT) | | | | ,PSKT or VIAL | | | + + + + | INFLUENZA QUADR | 12/09/2013 | | | W/PRES | | | | (PED/ADOL/ADULT) | | | | MULTIDOSE | | | + + + + | TDAP, (ADOL/ADULT) | 07/06/2011 | | + + + + Family History + + +------+ + | Medical History | Relation | Name | Comments | + + +------+ + | Diabetes | Father | | | + + +------+ + | Diabetes | Other | Aunt | | + + +------+ + + +------+--------+ + | Relation | Name | Status | Comments | + +------+--------+ + | Father | | | | + +------+--------+ + | Other | Aunt | Alive | | + +------+--------+ + Social History + +-------+ +--------+------+ | [...] | + + Last Filed Vital Signs + + + [...] | | + + + + + Plan of Treatment + + + + + | Health Maintenance | Due Date | Last Done | Comments | + + + + + | Hepatitis C | | | | | Screening | 9 | | | + + + + + | Vaccine: | | | | | Pneumococcal 19-64 | 5 | | | | (1 of 1 - PPSV23) | | | | + + + + + | Diabetic Eye Exam | | | | | | 7 | | | + + + + + | Diabetic Foot Exam | | | | | | 7 | | | + + + + + | Vaccine: Zoster (1 | | | | | of 2) | 9 | | | + + + + + | Vaccine: Influenza | | 11/21/2017, 11/21/2017, | | | (#1) | 9 | 11/21/2017, Additional history | | | | | exists | | + + + + + | Hemoglobin A1c | | 08/25/2018, 12/19/2017, | | | Screening | 0 | 12/19/2017 | | + + + + + | Colorectal Cancer | | 04/28/2015, 04/28/2015 | | | Screening | 1 | | | | (Colonoscopy) | | | | + + + + + | Primary Care | | 08/29/2018, 01/17/2018 | | | Outreach (Low Risk) | 1 | | | + + + + + | Vaccine: | | 07/06/2011 | | | Dtap/Tdap/Td (2 - | 2 | | | | Td) | | | | + + + + + Results Not on filefrom Last 3 Months Insurance +-------+--------+ +--------+-------+---------+------+ | Payer | Benefi | Subscriber | Effect | Phone | Address | Type | | | t Plan | ID | aleshia | | | | | | / | | Dates | | | | | | Group | | | | | | +-------+--------+ +--------+-------+---------+------+ | BCBS | BCBS | [id number] | 02/18/19 | | | PPO | | | FEDERA | | 16-Pre | | | | | | L FEP | | sent | | | | +-------+--------+ +--------+-------+---------+------+ + +--------+ +--------+ + + | Guarantor Name | Accoun | Relation to | Date | Phone | Billing Address | | | t Type | Patient | of | | | | | | | | | | + +--------+ +--------+ + + | Juan Carlos Rivera | Person | Self | [birth year] | [address] | | | al/Fam | | 1961 | [phone] | [place] | | | juwan | | | 5 (Home) | [address] | + +--------+ +--------+ + + Advance Directives + + + + + | Type | Date Recorded | Patient | Explanation | | | | Biology Lecturer | | + + + + + | Power of | | | | | Analytical Lab Analyst | | | | + + + + + | Advance | 01/17/2018 | | | | Directive | 1:48 PM | | | + + + + +
--- OUTSIDE RECORDS SUMMARY | ~2019-02-20 | XMS | Encounter Summary ---
Demographics + + + | Address | [address] | | | [place] [address] | + + + | Home Phone | | + + + | Preferred Language | Unknown | + + + | Marital Status | | + + + | Taoist Affiliation | Unknown | + + + | Race | Unknown | + + + | Ethnic Group | Unknown | + + + Author + + + | Author | [facility] | | | and [place] | + + + | Organization | [facility] | | | [...] Team Providers + +------+ + | Care Casting Director Name | Role | Phone | + [...] Medication Refill | | 2017 | | [facility] | | | | | | MEDICAL CL[facility] [address] | | | | | | [address] [facility], | | | | | | [place] [address] | | | | | | [phone] | | | +--------+--------+ + + + [...]
--- OUTSIDE RECORDS SUMMARY | ~2019-02-20 | XMS | Encounter Summary ---
Demographics + + + | Address | [address] | | | [place] [address] | + + + | Home Phone | | + + + | Preferred Language | Unknown | + + + | Marital Status | | + + + | Rastafarian Affiliation | Unknown | + + + | Race | Unknown | + + + | Ethnic Group | Unknown | + + + Author + + + | Author | [facility] | | | and [place] | + + + | Organization | [facility] | | | [...] Team Providers + +------+ + | Care Coremaker Pipe Name | Role | Phone | + +------+ + | Edgardo Boone DO | PCP | | + +------+ + Reason for Visit + + + | Reason | Comments | + + + | Lab Results | | + + + Encounter Details +--------+ + + + + | Date | Type | Department | Care Team | Description | +--------+ + + + + | 08/25/ | Telephone | [facility] | Edgardo Boone | Lab Results | | 2019 | | [facility] | E, DO [address] | | | | | MEDICAL CLIN[address] | [place], [place] | | | | | [address] [place], | [address] | | | | | [place] [address] | [phone] | | | | | [phone] | | | +--------+ + + + [...]
--- OUTSIDE RECORDS SUMMARY | ~2019-02-20 | XMS | Encounter Summary ---
Demographics + + + | Address | [address] | | | [place] [address] | + + + | Home Phone | | + + + | Preferred Language | Unknown | + + + | Marital Status | | + + + | Adventist Affiliation | Unknown | + + + | Race | Unknown | + + + | Ethnic Group | Unknown | + + + Author + + + | Author | [facility] | | | and [place] | + + + | Organization | [facility] | | | [...] Team Providers + +------+ + | Care Special Education Science Teacher Name | Role | Phone | + +------+ + | Edgardo Boone DO | PCP | | + +------+ + Encounter Details +--------+ + + + + | Date | Type | Department | Care Team | Description | +--------+ + + + + | 01/16/ | Abstract | [facility] | Nomi Dowling | | | 2017 | | [facility] | | | | | | MEDICAL CLIN[facility] [address] | | | | | | [address] [place], | | | | | | [place] [address] | | | | | | [phone] | | | +--------+ + + + [...]
--- OUTSIDE RECORDS SUMMARY | ~2019-02-20 | XMS | Encounter Summary ---
Demographics + + + | Address | [address] | | | [place] [address] | + + + | Home Phone | | + + + | Preferred Language | Unknown | + + + | Marital Status | | + + + | Roman Catholic Affiliation | Unknown | + + + [...] Team Providers + +------+ + | Care Racecourse Barrier Attendant Name | Role | Phone | + [...] | | | MEDICAL CLIN[facility] [address] | [place], [place] | | | | | [address] [place], | [address] | | | | | [place] [address] | [phone] | | | | | [phone] | | | +--------+ + + + [...]
--- OUTSIDE RECORDS SUMMARY | ~2019-02-20 | XMS | Encounter Summary ---
Demographics + + + | Address | [address] | | | [place] [address] | + + + | Home Phone | | + + + | Preferred Language | Unknown | + + + | Marital Status | | + + + | Pentecostal Affiliation | Unknown | + + + | Race | Unknown | + + + | Ethnic Group | Unknown | + + + Author + + + | Author | [facility] | | | and [place] | + + + | Organization | [facility] | | | [...] Team Providers + +------+ + | Care Archeologist Classical Name | Role | Phone | + +------+ + | Edgardo Hanson DO | PCP | | + +------+ + Reason for Visit + + + | Reason | Comments | + + + | Lab Results | | + + + Encounter Details +--------+ + + + + | Date | Type | Department | Care Team | Description | +--------+ + + + + | 04/09/ | Telephone | [facility] | Edgardo Hanson | Lab Results | | 2019 | | [facility] | E, DO [address] | | | | | [facility] [address] | [place], [place] | | | | | [address] [place], | [address] | | | | | [place] [address] | [phone] | | | | | [phone] | | | +--------+ + + + [...] + | LIPID PANEL | Routin | 08/25/2018 | | Results for this | | | e | 7:28 AM | | procedure are in the | | | | PDT | | results section. | + +--------+ + + + | PSA, SCREEN | Routin | 08/25/2018 | | Results for this | | | e | 7:28 AM | | procedure are in the | | | | PDT | | results section. | + +--------+ + + + | CBC WITH | Routin | 08/25/2018 | | Results for this | | DIFFERENTIAL | e | 7:28 AM | | procedure are in the | | | | PDT | | results section. | + +--------+ + + + | HEMOGLOBIN A1C | Routin | 08/25/2018 | | Results for this | | | e | 7:28 AM | | procedure are in the | | | | PDT | | results section. | + +--------+ + + + | COMPREHENSIVE | Routin | 08/25/2018 | | Results for this | | METABOLIC PANEL | e | 7:28 AM | | procedure are in the | | | | PDT | | results section. | + +--------+ + + + | MICROALBUMIN, URINE, | Routin | 08/25/2018 | | Results for this | | RANDOM | e | 12:00 AM | | procedure are in the | | | | PDT | | results section. | + +--------+ + + + | URINALYSIS WITH | Routin | 08/25/2018 | | Results for this | | MICROSCOPIC WITH | e | 12:00 AM | | procedure are in the | | CULTURE IF INDICATED | | PDT | | results section. | + +--------+ + + + documented in this encounter Results CBC with Differential (08/25/2018 7:28 AM PDT) + + + + + + | Component | Value | Ref Range | Performed | Pathologist | | | | | At | Signature | + + + + + + | WBC | 4.9 | 4.5 - 11.0 | REFERENCE | | | | | | LAB | | | | | | [facility] | | + + + + + + | RBC Count | 4.95 | 4.3 - 5.7 | REFERENCE | | | | | | LAB | | | | | | [facility] | | + + + + + + | Hemoglobin | 13.2 (L) | 13.5 - 18.0 | REFERENCE | | | | | | LAB | | | | | | [facility] | | + + + + + + | Hct | 40.1 (L) | 41 - 50 | REFERENCE | | | | | | LAB | | | | | | [facility] | | + + + + + + | MCV | 81.0 | 81 - 99 | REFERENCE | | | | | | LAB | | | | | | [facility] | | + + + + + + | RDW | 14.9 | 10.5 - 15.0 | REFERENCE | [...] + + + + | Platelet | 109 (L) | 140 - 440 | REFERENCE | | | Count | | | LAB | | | | | | [facility] | | + + + + + + | % | 49.2 | 39 - 80 | REFERENCE | | | Neutrophils | | | LAB | | | | | | [facility] | | + + + + + + | % | 34.1 | 24 - 44 | REFERENCE | | | Lymphocytes | | | LAB | | | | | | [facility] | | + + + + + + | Monocyte % | 9.6 | 0 - 12 | REFERENCE | | | | | | LAB | | | | | | [facility] | | + + + + + + | Eosinophils | 5.9 | 0 - 6 | REFERENCE | [...] [facility] | | | | has been found:Slight | | | | | | Polychromasia Slight | | | | | | Poikilocytosis Includes: | | | | | | Slight Ovalocytes Few | | | | | | Macroplatelets Patient | | | | | | unable to provide urine | | | | | | sample. Report will | | | | | | follow on new accession | | | | | | when patient returns | | | | | | sample to | | | | | | laboratory.Instructions | | | | | | Received: Fax To: | | | | | | KORIN HANSON D.O. at | | | | | | | | | | + + + + + + + + | Specimen | + + | | + + + + + | Narrative | Performed At | + + + | Testing Performed at: [facility] CLIA: [id number] - [address] | REFERENCE LAB | | [place] [address] | [facility] | + + + + + + + + | Performing | Address | City/State/Zipcode | Phone Number | | Organization | | | | + + + + + | REFERENCE LAB | [address] | [place] [address] | [phone] | | [facility] | | | | + + + + + | REFERENCE LAB | [address] | [place] [address] | [phone] | | [facility] | | | | + + + + + PSA, Screen (08/25/2018 7:28 AM PDT) + + + + + + | Component | Value | Ref Range | Performed | Pathologist | | | | | At | Signature | + + + + + + | PSA, Total | 0.671Comment: The [facility] | 0.0 - 4.0 | [...] biotin | | | | | | administration.Patient | | | | | | unable to provide urine | | | | | | sample. Report will | | | | | | follow on new accession | | | | | | when patient returns | | | | | | sample to | | | | | | laboratory.Instructions | | | | | | Received: Fax To: | | | | | | KORIN HANSON D.O. at | | | | | | | | | | + + + + + + + + | Specimen | + + | | + + + + + | Narrative | Performed At | + + + | Testing Performed at: [facility] CLIA: [id number] - [address] | REFERENCE LAB | | [place] [address] | [facility] | + + + + + + + + | Performing | Address | City/State/Zipcode | Phone Number | | Organization | | | | + + + + + | REFERENCE LAB | [address] [place] [address] | [place] [address] | [phone] | | [facility] | | | | + + + + + | REFERENCE LAB | [address] [place] [address] | [place] [address] | [phone] | | [facility] | | | | + + + + + Hemoglobin A1C (08/25/2018 7:28 AM PDT) + + + + + [...] the | | | | | | [place] Diabetes | | | | | | [...] | | | | | | deficiency | | | | | | anemia.Patient unable to | | | | | | provide urine sample. | | | | | | Report will follow on | | | | | | new accession when | | | | | | patient returns sample | | | | | | to | | | | | | laboratory.Instructions | | | | | | Received: Fax To: | | | | | | KORNI HANSON D.O. at | | | | | | | | | | + + + + + + + + | Specimen | + + | | + + + + + | Narrative | Performed At | + + + | Testing Performed at: [facility] CLIA: [id number] - [address] | REFERENCE LAB | | [place] [address] | [facility] | + + + + + + + + | Performing | Address | City/State/Zipcode | Phone Number | | Organization | | | | + + + + + | REFERENCE LAB | [address] | [place] [address] | [phone] | | [facility] | | | | + + + + + | REFERENCE LAB | [address] | [place] [address] | [phone] | | [facility] | | | | + + + + + Comprehensive Metabolic Panel (08/25/2018 7:28 AM PDT) + + + + + + | Component | Value | Ref Range | Performed | Pathologist | | | | | At | Signature | + + + + + + | Sodium | 139 | 132 - 143 | REFERENCE | | | | | | LAB | | | | | | [facility] | | + + + + + + | Potassium | 3.9 | 3.6 - 5.1 | REFERENCE | | | | | | LAB | | | | | | [facility] | | + + + + + + | Chloride | 101 | 95 - 112 | REFERENCE | | | | | | LAB | | | | | | [facility] | | + + + + + + | Carbon | 29 | 19 - 31 | REFERENCE | | | dioxide | | | LAB | | | | | | [facility] | | + + + + + + | Anion Gap | 12.9 | 7 - 21 | REFERENCE | | | | | | LAB | | | | | | [facility] | | + + + + + + | Glucose | 109 (H) | 70 - 100 | REFERENCE | | | | | | LAB | | | | | | [facility] | | + + + + + + | BUN | 19 | 6 - 23 | REFERENCE | | | | | | LAB | | | | | | [facility] | | + + + + + + | Creatinine | 1.01 | 0.70 - 1.25 | REFERENCE | | | | | | LAB | | | | | | [facility] | | + + + + + + | GFR | 75 | | REFERENCE | | | ESTIMATE | | | LAB | | | (REF) | | | [facility] | | + + + + + + | BUN/Creatin | 18.8 | 6.0 - 28.6 | REFERENCE | | | ine Ratio | | | LAB | | | | | | [facility] | | + + + + + + | Calcium | 9.3 | 8.5 - 10.3 | REFERENCE | | | | | | LAB | | | | | | [facility] | | + + + + + + | AST (SGOT) | 16 | 13 - 39 | REFERENCE | | | (REF) | | | LAB | | | | | | [facility] | | + + + + + + | ALT (SGPT) | 26 | 7 - 52 | REFERENCE | | | (REF) | | | LAB | | | | | | [facility] | | + + + + + + | ALK PHOS | 51 | 31 - 120 | REFERENCE | [...] + + + + | Protein, | 6.7 | 6.0 - 8.3 | REFERENCE | | | Total | | | LAB | | | | | | [facility] | | + + + + + + | Albumin | 4.3 | 3.5 - 5.0 | REFERENCE | | | | | | LAB | | | | | | [facility] | | + + + + + + | Globulin | 2.4 | 1.8 - 3.5 | REFERENCE | [...] of | | | | | | 09/05/2017.Patient unable | | | | | | to provide urine | | | | | | sample. Report will | | | | | | follow on new accession | | | | | | when patient returns | | | | | | sample to | | | | | | laboratory.Instructions | | | | | | Received: Fax To: | | | | | | KORIN HANSON D.O. at | | | | | | | | | | + + + + + + + + | Specimen | + + | | + + + + + | Narrative | Performed At | + + + | Testing Performed at: [facility] CLIA: [id number] - [address] | REFERENCE LAB | | [place] [address] | [facility] | + + + + + + + + | Performing | Address | City/State/Zipcode | Phone Number | | Organization | | | | + + + + + | REFERENCE LAB | [address] | [place] [address] | [phone] | | [facility] | | | | + + + + + | REFERENCE LAB | [address] | [place] [address] | [phone] | | [facility] | | | | + + + + + Lipid Panel (08/25/2018 7:28 AM PDT) + + + + + + | Component | Value | Ref Range | Performed | Pathologist | | | | | At | Signature | + + + + + + | Cholesterol | 146 | OPT: <200 | REFERENCE | | | | | | LAB | | | | | | [facility] | | + + + + + + | Triglycerid | 97 | 30 - 150 | REFERENCE | | | es | | | LAB | | | | | | [facility] | | + + + + + + | HDL | 34.6 (L) | OPT: >40 | REFERENCE | | | Cholesterol | | | LAB | | | | | | [facility] | | + + + + + + | LDL | 92 | OPT: <100 | REFERENCE | | | Cholesterol | | | LAB | | | | | | [facility] | | + + + + + + | Cholesterol | 19 | 4 - 40 | REFERENCE | | | in VLDL | | | LAB | | | | | | [facility] | | + + + + + + | Chol/HDL | 4.2 | OPT: <4.97 | REFERENCE | | | Ratio | | | LAB | | | | | | [facility] | | + + + + + + | Non-HDL | 111Comment: Patient | OPT: <130 | REFERENCE | | | Cholesterol | unable to provide urine | | LAB | | | | sample. Report will | | [facility] | | | | follow on new accession | | | | | | when patient returns | | | | | | sample to | | | | | | laboratory.Instructions | | | | | | Received: Fax To: | | | | | | KORIN HANSON D.O. at | | | | | | | | | | + + + + + + + + | Specimen | + + | | + + + + + | Narrative | Performed At | + + + | Testing Performed at: [facility] CLIA: [id number] - [id number] | REFERENCE LAB | | [place] [address] | [facility] | + + + + + + + + | Performing | Address | City/State/Zipcode | Phone Number | | Organization | | | | + + + + + | REFERENCE LAB | [address] [facility] | [place] [id number] | [phone] | | [facility] | | | | + + + + + | REFERENCE LAB | [address] [facility] | [place] [address] | [phone] | | [facility] | | | | + + + + + Microalbumin, Urine, Random (08/25/2018 12:00 AM PDT) + + + + + + | Component | Value | Ref Range | Performed | Pathologist | | | | | At | Signature | + + + + + + | Microalbumi | <0.7 | 0.0 - 2.0 | REFERENCE | | | n, Urine | | | LAB | | | | | | [facility] | | + + + + + + | CREATININE, | 92.07 | | REFERENCE | | | QN,UR | | | LAB | | | | | | [facility] | | + + + + + + | Microalb | Comment: Microalbumin | 0 - 30 | REFERENCE | | | Creat Ratio | Calculation is invalid | | LAB | | | | when Microalbumin | | [facility] | | | | (mg/dl) is less than 0.7 | | | | | | mg/dl | | | | | | | | | | + + + + + + + + | Specimen | + + | | + + + + + | Narrative | Performed At | + + + | Testing Performed at: [facility] CLIA: [id number] - [address]487 | REFERENCE LAB | | [place] [address] | [facility] | + + + + + + + + | Performing | Address | City/State/Zipcode | Phone Number | | Organization | | | | + + + + + | REFERENCE LAB | [address] [facility] | [place] [address] | [phone] | | [facility] | | | | + + + + + | REFERENCE LAB | [address] [facility] | [place] [address] | [phone] | | [facility] | | | | + + + + + Urinalysis with Microscopic with Culture if Indicated (08/25/2018 12:00 AM PDT) + + + + + + | Component | Value | Ref Range | Performed | Pathologist | | | | | At | Signature | + + + + + + | Collection | CLEAN CATCH | | REFERENCE | | | | | | LAB | | | | | | [facility] | | + + + + + + | Color, UA | YELLOW | | REFERENCE | | | | | | LAB | | | | | | [facility] | | + + + + + + | Clarity, UA | CLEAR | | REFERENCE | | | | | | LAB | | | | | | [facility] | | + + + + + + | Specific | 1.010 | 1.005 - 1.030 | REFERENCE | | | [place] | | | LAB | | | | | | [facility] | | + + + + + + | pH, | 6 | 5 - 9 | REFERENCE | | | Scalp | | | LAB | | | | | | [facility] | | + + + + + + | Protein, UA | NEGATIVE | negative | REFERENCE | | | | | | LAB | | | | | | [facility] | | + + + + + + | Glucose, UA | NORMAL | normal | REFERENCE | | | | | | LAB | | | | | | [facility] | | + + + + + + | Ketones, UA | NEGATIVE | negative | REFERENCE | | | | | | LAB | | | | | | [facility] | | + + + + + + | Bilirubin, | NEGATIVE | negative | REFERENCE | | | UA | | | LAB | | | | | | [facility] | | + + + + + + | Blood, UA | NEGATIVE | negative | REFERENCE | | | | | | LAB | | | | | | [facility] | | + + + + + + | Nitrite, UA | NEGATIVE | negative | REFERENCE | | | | | | LAB | | | | | | [facility] | | + + + + + + | Urobilinoge | NORMAL | normal | REFERENCE | | | n, Ur | | | LAB | | | | | | [facility] | | + + + + + + | Leukocyte | NEGATIVE | negative | REFERENCE | | | esterase, | | | LAB | | | UA | | | [facility] | | + + + + + + | Other Casts | NEGATIVE | 0-1+ Hyaline | REFERENCE | | | | | | LAB | | | | | | [facility] | | + + + + + + | WBC, UA | 0 | 0 - 4 | REFERENCE | | | | | | LAB | | | | | | [facility] | | + + + + + + | RBC, UA | 0 | 0 - 4 | REFERENCE | | | | | | LAB | | | | | | [facility] | | + + + + + + | Squamous | NEGATIVE | 0-1+ Squamous | REFERENCE | | | epithelial, | | | LAB | | | UA | | | [facility] | | + + + + + + | CRYSTAL UA | NEGATIVE | 0-1+ | REFERENCE | | | | | | LAB | | | | | | [facility] | | + + + + + + | Bacteria, | NEGATIVE | negative | REFERENCE | | | UA | | | LAB | | | | | | [facility] | | + + + + + + + + | Specimen | + + | | + + + + + | Narrative | Performed At | + + + | Testing Performed at: [facility] CLIA: [id number] - [address] | REFERENCE LAB | | [place] [address] | [facility] | + + + + + + + + | Performing | Address | City/State/Zipcode | Phone Number | | Organization | | | | + + + + + | REFERENCE LAB | [address] | [place] [address] | [phone] | | [facility] | | | | + + + + + | REFERENCE LAB | [address] | [place] [address] | [phone] | | [facility] | | | | + + + + + documented in this encounter Visit Diagnoses Not on filedocumented in this encounter"
--- OUTSIDE RECORDS SUMMARY | ~2019-02-20 | XMS | Clinical Summary ---
Demographics + + + | Address | [address] | | | [place] [address] | + + + | Home Phone | | + + + | Preferred Language | Unknown | + + + | Marital Status | | + + + | Yazdanism Affiliation | Unknown | + + + | Race | Unknown | + + + | Ethnic Group | Unknown | + + + Author + + + | Author | [facility] | | | and [place] | + + + | Organization | [facility] | | [...] Team Providers + +------+ + | Care Keyboard Action Assembler Name | Role | Phone | + [...] | + + + +---------+------+------+-------+ | [address] [place] [address] | Take by mouth. | | [...] +-------+--------+ +--------+-------+---------+------+ | BCBS | BCBS | [id number] | 02/18/19 | | | PPO | [...] Person | Self | [birth year] | [address] | | | al/Fam | | 1961 | [phone] | [place] | | | juwan | | | 5 (Home) | [address] | + +--------+ +--------+ + + Advance Directives + + + + + | Type | Date Recorded | Patient | Explanation | | | | Cad Specialist | | + + + + + | Power of | | | | | Strategic Consultant | | | | + + + + + | Advance | 01/17/2018 | | | | Directive | 1:48 PM | | | + + + + +
--- OUTSIDE RECORDS SUMMARY | ~2019-02-20 | XMS | Encounter Summary ---
Demographics + + + | Address | [address] | | | [place] [address] | + + + | Home Phone | | + + + | Preferred Language | Unknown | + + + | Marital Status | | + + + | Baptism Affiliation | Unknown | + + + | Race | Unknown | + + + | Ethnic Group | Unknown | + + + Author + + + | Author | [facility] | | | and [place] | + + + | Organization | [facility] | | | [...] Team Providers + +------+ + | Care Electric Distribution Checker Name | Role | Phone | + [...] | | | [facility] [address] | [place], [place] | | | | | [address] [place], | [address] | | | | | [place] [address] | [phone] | | | | | [phone] | | | +--------+--------+ + + + [...]
--- OUTSIDE RECORDS SUMMARY | ~2019-02-20 | XMS | Encounter Summary ---
Demographics + + + | Address | [address] | | | [place] [address] | + + + | Home Phone [...] Team Providers + +------+ + | Care Rod Buster Name | Role | Phone | + [...] | | | [facility] [address] | [place], [place] | | | | | [address] [place], | [address] | | | | | [place] [address] | [phone] | | | | | [phone] | | | +--------+--------+ + + + [...] | | | | | | insulin ([facility]) | | + +------+--------+ + + | Hemoglobin A1C | Lab | Routin | Type 2 diabetes | 1 Occurrences | | | | e | mellitus without | starting 08/14/2018 | | | | | complication, | until 08/15/2019 | | | | | without long-term | | | | | | current use of | | | | | | insulin ([facility]) | | + +------+--------+ + + | [...] | | | | | | insulin ([facility]) | | + +------+--------+ + + | [...]
--- OUTSIDE RECORDS SUMMARY | ~2019-02-20 | XMS | Encounter Summary ---
Demographics + + + | Address | [address] | | | [place] [address] | + + + | Home Phone | | + + + | Preferred Language | Unknown | + + + | Marital Status | | + + + | Scientologist Affiliation | Unknown | + + + [...] Team Providers + +------+ + | Care Pivot Maker Name | Role | Phone | [...] Medication Prior | | 2017 | | [facility] | E, DO [address] | Authorization | | | | MEDICAL [facility] [address] | [place], [place] | (Itraconazole 100 mg | | | | [address] [place], | [address] | ) | | | | [place] [address] | [phone] | | | | | [phone] | | | +--------+ + + + [...]
--- OUTSIDE RECORDS SUMMARY | ~2019-02-20 | XMS | Encounter Summary ---
Demographics + + + | Address | [address] | | | [place] [address] | + + + | Home Phone | | + + + | Preferred Language | Unknown | + + + | Marital Status | | + + + | Mandaeism Affiliation | Unknown | + + + | Race | Unknown | + + + | Ethnic Group | Unknown | + + + Author + + + | Author | [facility] | | | and [place] | + + + | Organization | [facility] | | | [...] Team Providers + +------+ + | Care Main Line Station Engineer Name | Role | Phone | + [...] Medication Refill | | 2018 | | [facility] | CC SENIOR UI DESIGNER | | | | | [facility] [address] | | | | | | [address] [facility], | | | | | | [place] [address] | | | | | | [phone] | | | +--------+--------+ + + + [...]
--- OUTSIDE RECORDS SUMMARY | ~2019-02-20 | XMS | Encounter Summary ---
Demographics + + + | Address | [address] | | | [place] [address] | + + + | Home Phone | | + + + | Preferred Language | Unknown | + + + | Marital Status | | + + + | Evangelical Affiliation | Unknown | + + + [...] Team Providers + +------+ + | Care Credit Union Examiner Name | Role | Phone | + [...] | | | [facility] [address] | [place], [place] | | | | | [address] [place], | [address] | | | | | [place] [address] | [phone] | | | | | [phone] | | | +--------+ + + + [...]
--- OUTSIDE RECORDS SUMMARY | ~2019-02-20 | XMS | Encounter Summary ---
Demographics + + + | Address | [address] | | | [place] [address] | + + + | Home Phone | | + + + | Preferred Language | Unknown | + + + | Marital Status | | + + + | Yazidism Affiliation | Unknown | + + + | Race | Unknown | + + + | Ethnic Group | Unknown | + + + Author + + + | Author | [facility] | | | and [place] | + + + | Organization | [facility] | | [...] Team Providers + +------+ + | Care Shop Tech Name | Role | Phone | + [...] Medication Refill | | 2018 | | [facility] | DNP [address] | | | | | MEDICAL CLIN[facility] [address] | [place] [address] | | | | | [address] [place], | [phone] | | | | | [place] [address] | | | | | | [phone] | | | +--------+--------+ + + + [...]
--- OUTSIDE RECORDS SUMMARY | ~2019-02-20 | XMS | Encounter Summary ---
Demographics + + + | Address | [address] | | | [place] [address] | + + + | Home Phone | | + + + | Preferred Language | Unknown | + + + | Marital Status | | + + + | Samaritan Affiliation | Unknown | + + + [...] Team Providers + +------+ + | Care Brewery Representative Name | Role | Phone | [...] | | | [facility] | [place], [place] | | | | | [address] [place], | [address] | | | | | [place] [address] | [phone] | | | | | [phone] | | | +--------+ + + + [...] Testing Performed at: [facility] CLIA: [id number] - [address] | REFERENCE LAB | | [place] [address] | [facility] | + + + + + + + + | Performing | Address | City/State/Zipcode | Phone Number | | Organization | | | | + + + + + | REFERENCE LAB | [address] [place] | [place] [address] | [phone] | | [facility] | | | | + + + + + | REFERENCE LAB | [address] | [place] [address] | [phone] | | [facility] | | | | [...] Testing Performed at: [facility] CLIA: [id number] - 3974 | REFERENCE LAB | | [place] [address] | [facility] | + + + + + + + + | Performing | Address | City/State/Zipcode | Phone Number | | Organization | | | | + + + + + | REFERENCE LAB | [address] [place] [address] | [place] [address] | [phone] | | [facility] | | | | + + + + + | REFERENCE LAB | [address] [place] [address] | [place] [address] | [phone] | | [facility] | | | | [...] the | | | | | | [facility] | | | | | | [...] Testing Performed at: [facility] CLIA: [id number] - [address] | REFERENCE LAB | | [place] [address] | [facility] | + + + + + + + + | Performing | Address | City/State/Zipcode | Phone Number | | Organization | | | | + + + + + | REFERENCE LAB | [address] | [place] [address] | [phone] | | [facility] | | | | + + + + + | REFERENCE LAB | [address] | [place] [address] | [phone] | | [facility] | | | | [...] Testing Performed at: [facility] CLIA: [id number] - [address] | REFERENCE LAB | | [place] [address] | [facility] | + + + + + + + + | Performing | Address | City/State/Zipcode | Phone Number | | Organization | | | | + + + + + | REFERENCE LAB | [address] | [place] [address] | [phone] | | [facility] | | | | + + + + + | REFERENCE LAB | [address] | [place] [address] | [phone] | | [facility] | | | | [...] Testing Performed at: [facility] CLIA: [id number] - 5673 | REFERENCE LAB | | [place] [address] | [facility] | + + + + + + + + | Performing | Address | City/State/Zipcode | Phone Number | | Organization | | | | + + + + + | REFERENCE LAB | [address] [facility] | [place] [id number] | [phone] | | [facility] | | | | + + + + + | REFERENCE LAB | [address] [facility] | [place] [address] | [phone] | | [facility] | | | | [...] Testing Performed at: [facility] CLIA: [id number] - 2102 | REFERENCE LAB | | [place] [address] | [facility] | + + + + + + + + | Performing | Address | City/State/Zipcode | Phone Number | | Organization | | | | + + + + + | REFERENCE LAB | [address] [facility] | [place] [address] | [phone] | | [facility] | | | | + + + + + | REFERENCE LAB | [address] [facility] | [place] [address] | [phone] | | [facility] | | | | [...] - 1.030 | REFERENCE | | | [place] | | | LAB | | | [...] Testing Performed at: [facility] CLIA: [id number] - [address] | REFERENCE LAB | | [place] [address] | [facility] | + + + + + + + + | Performing | Address | City/State/Zipcode | Phone Number | | Organization | | | | + + + + + | REFERENCE LAB | [address] | [place] [address] | [phone] | | [facility] | | | | + + + + + | REFERENCE LAB | [address] | [place] [address] | [phone] | | [facility] | | | | + + + + + documented in this encounter Visit Diagnoses Not on filedocumented in this encounter"
--- OUTSIDE RECORDS SUMMARY | ~2019-02-20 | XMS | Encounter Summary ---
Demographics + + + | Address | [address] | | | [place] [address] | + + + | Home Phone | | + + + | Preferred Language | Unknown | + + + | Marital Status | | + + + | Baptism Affiliation | Unknown | + + + | Race | Unknown | + + + | Ethnic Group | Unknown | + + + Author + + + | Author | [facility] | | | and [place] | + + + | Organization | [facility] | | | [...] Team Providers + +------+ + | Care License And Permit Specialist Name | Role | Phone | + [...] Medication Refill | | 2018 | | [facility] | E, DO [address] | | | | | MEDICAL CLINIC [address] | [place], [place] | | | | | [address] [place], | [address] | | | | | [place] [address] | [phone] | | | | | [phone] | | | +--------+--------+ + + + [...]
--- OUTSIDE RECORDS SUMMARY | ~2019-02-20 | XMS | Encounter Summary ---
Demographics + + + | Address | [address] | | | [place] [address] | + + + | Home Phone | | + + + | Preferred Language | Unknown | + + + | Marital Status | | + + + | Mormon Affiliation | Unknown | + + + | Race | Unknown | + + + | Ethnic Group | Unknown | + + + Author + + + | Author | [facility] | | | and [place] | + + + | Organization | [facility] | | | [...] Team Providers + +------+ + | Care Banquet Director Name | Role | Phone | + +------+ + PCP | Unavailable | + +------+ + Encounter Details +--------+ + + + + | Date | Type | Department | Care Team | Description | +--------+ + + + + | 01/09/ | Emergency | [facility] | Harriet Jimenez, | Injury of face and | | 2009 - | | MEDICAL CENTER | MD [address] | neck | | | | EMERGENCY CENTER | [place], [place] | | | 01/10/ | | [address] | [address] | | | 2009 | | [place], [place] | | | | | | [address] | | | | | | [phone] | | | +--------+ + + + [...] Performed At | + + + | [facility] [address] Ph: | | | Patient Name: JUAN CARLOS METCALF Date of : | | | 1960 Medical Record: [id number] Account: [id number] | | | Exam Date/Time: 01/09/2010 23:49 [...] - 10/12/2018 1:07 PM PDT | | [facility] | | [facility] [address] | | | | | | Patient Name: JUAN CARLOS METCALF | | Date of : 1960 | | Medical Record: [id number] | | Account: [id number] | | | | | | Exam [...] Performed At | + + + | [facility] [address] Ph: | | | Patient Name: JUAN CARLOS METCALF Date of : | | | 1960 Medical Record: [id number] Account: [id number] | | | Exam Date/Time: 01/09/2010 22:30 [...] - 10/12/2018 1:07 PM PDT | | [facility] | | [facility] [address] | | | | | | Patient Name: JUAN CARLOS METCALF | | Date of : 1960 | | Medical Record: [id number] | | Account: [id number] | | | | | | Exam [...]
--- OUTSIDE RECORDS SUMMARY | ~2019-02-20 | XMS | Clinical Summary ---
Demographics + + + | Address | [address] | | | [place] [address] | + + + | Home Phone | | + + + | Preferred Language | Unknown | + + + | Marital Status | Single | + + + | Jain Affiliation | Unknown | + + + | Race | Unknown | + + + | Ethnic Group | Other Race | + + + Author + + + | Author | [facility] | + + + | Organization | [facility] | + + + | Address | Unknown | + + + | Phone | Unavailable | + + + Care Team Providers + +------+ + | Care Promotion Specialist Name | Role | Phone | + +------+ + PCP | Unavailable | + +------+ + Source Comments KRYSTAL is fully live on both [facility] and [facility] Allergies Not on File Medications Not on [...] | | al/Fam | | 1960 | [phone] | [place] [address] | | | juwan | | | 5 (Home) | | + +--------+ +--------+ + +"
--- OUTSIDE RECORDS SUMMARY | ~2019-02-20 | XMS | Encounter Summary ---
Demographics + + + | Address | [address] | | | [place] [address] | + + + | Home Phone | | + + + | Preferred Language | Unknown | + + + | Marital Status | | + + + | Worship Affiliation | Unknown | + + + | Race | Unknown | + + + | Ethnic Group | Unknown | + + + Author + + + | Author | [facility] | | | and [place] | + + + | Organization | [facility] | | | [...] Team Providers + +------+ + | Care Seat Installer Name | Role | Phone | + [...] Medication Refill | | 2018 | | [facility] | E, DO [address] | | | | | MEDICAL CLINIC [address] | [place], [place] | | | | | [address] [place], | [address] | | | | | [place] [address] | [phone] | | | | | [phone] | | | +--------+--------+ + + + [...]
[~2019-02-20 18:03] MED LIST: ASPIRIN EC81 MG PO; DAILY VITE1 EACH PO; FLOMAX0.4 MG PO; LISINOPRIL-HCT1 EAC1 PO; LISINOPRIL10 MG PO; LORTAB 7.5-5001 EACH PO; SAW PALMETTO160 MG PO; ZOFRAN ODT4 MG PO
[2019-02-20] MEDS ORDERED: KEFLEX500 MG PO (19:20)
== END 2019-02-20 19:40 | disposition home or self-care (01) ==
LOC: ED 18:03
PROC: 0HQGXZZ Repair Left Hand Skin, External Approach (ICD-10-PCS; principal; 2019-02-20)
DX: S62.633A Displaced fracture of distal phalanx of left middle finger, initial encounter for closed fracture (principal); S61.213A Laceration without foreign body of left middle finger without damage to nail, initial encounter; W22.8XXA Striking against or struck by other objects, initial encounter; I10 Essential (primary) hypertension; Z79.899 Other long term (current) drug therapy; Z79.82 Long term (current) use of aspirin
CPT/HCPCS: 12001; 73140; 90471; 90715; 99283-25

== ENCOUNTER 2022-09-25 06:30 | Day surgery (SDC) | payer BC, OTHER ==
[2022-09-24 16:36] VITALS: BP 129/77
[~2022-09-25] VITALS: Ht 190.5 cm; Wt 120.0 kg
[~2022-09-25 06:30] MED LIST changes: +GARLIC1 EAC1 PO; +HYZAAR 100-251 EACH PO; +KEFLEX500 MG PO; +LOVASTATIN10 MG PO; +METFORMIN HCL500 MG PO; +OMEPRAZOLE20 MG PO
[2022-09-25 06:40] VITALS: BP 136/62
--- NOTE | 2022-09-25 07:49 | NUR ---
0700 PT RESTING IN BED. IN GENERALLY GOOD SPIRITS. ADMITTED SOME ANXIETY ABOUT PROCEDURE BUT OVERALL COMFORTABLE. CONSENTED TO PRAYER. PRAYED FOR SUCCESSFUL PROCEDURE AND AWARENESS OF DIVINE PRESENCE.
--- NOTE | 2022-09-25 08:07 | NUR ---
09/25/22 0807 Sary Harmon 0805-PT TO PACU IN SF POSITION. EYES CLOSED. RESPONDS TO VERBAL STIMULI DENIES PAIN AND NAUSEA. BREATHING EASY AND UNLABORED. SPO2 >95% ON ROOM AIR. POC FOR PACU EXPLAINED.
[2022-09-25 08:59] VITALS: BP 128/90
--- NOTE | 2022-09-26 08:26 | OR ---
[facility] [address] [place], [place] [address] Signed DATE OF OPERATION: 09/25/2022 SURGEON: Kory Erickson MD PREOPERATIVE DIAGNOSIS: Substernal/epigastric abdominal pain. POSTOPERATIVE DIAGNOSIS: Mild gastroduodenitis. PROCEDURE: EGD with CLOtest and biopsies of the pyloric bulb and antrum. ESTIMATED BLOOD LOSS: None. INDICATIONS: Juan Carlos is a 62-year-old diabetic gentleman, asked to see me for upper endoscopy. He participated in sports when he was younger. He continues to ride his bicycle up and down the mountains to stay in shape. He had an episode of subxiphoid pain. He said he had COVID back in 2021. He said it has decreased his ability to get up the steep mountains in an aggressive fashion. He had been to his primary care provider. He thinks the chest x-ray was negative. He cannot specifically recall having an EKG performed. He tells me that to his knowledge, he never saw a dude wrangler or had a stress test. He remains in good shape with excellent muscle mass. He has omeprazole listed as a medication, but he tells me he never takes it. He said he does use a little aspirin. He recalls having two prior colonoscopies with Dr. Moss. Consequently, he is familiar with this process. In the office, I had given him a pamphlet on upper endoscopy. We had compared that to his previous colonoscopies. He understands the nature of the test. There is risk including, but not limited to gas bloating, crampy abdominal pain, bleeding, perforation requiring surgery, and missed diagnosis. He also understands the need for IV conscious sedation. He had expressed understanding and wished to proceed. PROCEDURE NOTE: I had met with Juan Carlos this morning. We had ordered preoperative blood work, chest x-ray and EKG. EKG showed normal sinus rhythm. Unfortunately, the chest x-ray and blood work were not completed. After this, Juan Carlos was taken into the endoscopy suite and placed in the supine semi-recumbent position. The posterior oropharynx was anesthetized with lidocaine spray. A bite block was utilized for the case. He was given a total of 4 mg Electronically Signed By: KORY ERICKSON MD 09/26/22 0826 PATIENT NAME: JUAN CARLOS METCALF OPERATIVE REPORT DATE OF : 56 REPORT #: [id number] PHYSICIAN: KORY ERICKSON MD PCP: CRISTY STOCK [facility] REPORT IS CONFIDENTIAL AND NOT TO BE RELEASED WITHOUT AUTHORIZATION [facility] [address] [place], [place] [address] Signed of Versed and 100 mcg of fentanyl to cover the case. The adult gastroscope was introduced and advanced under direct visualization of the camera without difficulty. The duodenum was unremarkable. His pyloric channel and his stomach showed some very mild diffuse erythematous changes. We went ahead and took a biopsy from the pyloric bulb as well as the antrum for pathologic review. An additional biopsy came out of the antrum for CLOtest. There were no ulcerations. Upon retroflexion of the scope, we can see an obvious hiatal hernia. The scope was withdrawn up through the area of the GE junction, which was compliant without stricture. There was no gastric or esophageal varices. He has very minimal disruption to the Z-line. There does not appear to be any irritation along the Z-line. There was no Nolan's mucosa. There was no distal esophagitis. The middle and upper esophagus were unremarkable. After this, the gas was suctioned out and the gastroscope removed. Juan Carlos tolerated the procedure quite well. RECOMMENDATIONS: I will see Juan Carlos back in my office in 7 to 14 days to review his results. He might consider some Pepcid or his omeprazole for his epigastric abdominal pain. Kory Erickson MD ALB/MODL /[id number] cc: Kory Erickson MD [facility] Copies: KORY ERICKSON MD ~ Electronically Signed By: KORY ERICKSON MD 09/26/22 0826 PATIENT NAME: JUAN CARLOS METCALF OPERATIVE REPORT DATE OF : 56 REPORT #: [id number] PHYSICIAN: KORY ERICKSON MD PCP: CRISTY STOCK [facility]- REPORT IS CONFIDENTIAL AND NOT TO BE RELEASED WITHOUT AUTHORIZATION
--- NOTE | 2022-09-26 15:24 | PATH ---
[facility] [address] [facility] [place] [place] [address] Signed SPECIMEN(S): A DUODENAL BULB BIOPSY SPECIMEN(S): B ANTRUM/PYLORUS BIOPSY SPECIMEN SOURCE: A. DUODENAL BULB BIOPSY B. ANTRUM/PYLORUS BIOPSY CLINICAL HISTORY: Epigastric pain. FINAL PATHOLOGIC DIAGNOSIS: A. Duodenal bulb biopsy: - Benign duodenal mucosa, negative for specific diagnostic abnormality. B. Antrum/pylorus biopsy: - Diffuse chronic gastritis. - Helicobacter pylori immunostain is positive for organisms. JVR:mfr:C2NR MICROSCOPIC EXAMINATION: A Helicobacter pylori immunostain is performed with appropriate positive and negative controls on block B1 and is positive for organisms. Histologic sections of all submitted blocks are examined by light microscopy. These findings, together with the gross examination, support the pathologic diagnosis. GROSS DESCRIPTION: A. The specimen, labeled and designated "Filkins, duodenal bulb biopsy," is received in formalin and consists of one mathews soft tissue fragment, 0.4 cm. Entirely submitted in (A1). B. The specimen, labeled and designated "Filkins, antrum/pylorus biopsy," is received in formalin and consists of one mathews soft tissue fragment, 0.4 cm. Entirely submitted in (B1). VB (under the direct supervision of a pathologist) The Gross Description was prepared using a voice recognition system. The report was reviewed for accuracy; however, sound-alike word errors, addition and/or deletions may occur. If there is any question about this report, please contact Client Services. ADDITIONAL NOTES: Immunohistochemical and/or in situ hybridization studies were performed on this case with the appropriate positive controls that react as expected. This test PATIENT NAME: OLIVIA METCALF PATHOLOGY DATE OF : 56 REPORT #: [id number] PHYSICIAN: GRISELDA DESAI PCP: CRISTY STOCK [employer] [employer] REPORT IS CONFIDENTIAL AND NOT TO BE RELEASED WITHOUT AUTHORIZATION [facility] [address] [place], [place] [address] Signed was developed and its performance characteristics determined by [facility]. It has not been cleared or approved by the U.S. Food and Drug Administration. The FDA has determined that such clearance or approval is not necessary. This test is used for clinical purposes. It should not be regarded as investigational or for research. [facility] is certified under the Clinical Laboratory Improvement Amendments of 1988 (CLIA) as qualified to perform high complexity clinical laboratory testing. This assay has not been validated for specimens that have been decalcified. PERFORMING LABORATORY: Technical component was performed by [facility], [address] [place] [address] (CLIA# [id number]). Professional interpretation was performed by [facility], [address] [place] [id number] (CLIA#: [id number]). Diagnostician: Tj Brennan MD Pathologist Electronically Signed 09/26/2022 Copies: ~ PATIENT NAME: OLIVIA METCALF PATHOLOGY DATE OF : 56 REPORT #: [id number] PHYSICIAN: GRISELDA DESAI PCP: CRISTY STOCK [facility] REPORT IS CONFIDENTIAL AND NOT TO BE RELEASED WITHOUT AUTHORIZATION
== END 2022-09-25 09:00 | disposition home or self-care (01) ==
LOC: OPS 06:30 → DS 06:30 → OPS 07:30
PROVIDERS: ATTEND Colon & Rectal Surgery
PROC: 0DB98ZX Excision of Duodenum, Via Natural or Artificial Opening Endoscopic, Diagnostic (ICD-10-PCS; 2022-09-25)
PROC: 0DB68ZX Excision of Stomach, Via Natural or Artificial Opening Endoscopic, Diagnostic (ICD-10-PCS; principal; 2022-09-25 07:30)
DX: K29.90 Gastroduodenitis, unspecified, without bleeding (principal); E11.9 Type 2 diabetes mellitus without complications; I10 Essential (primary) hypertension; J45.909 Unspecified asthma, uncomplicated; N40.0 Benign prostatic hyperplasia without lower urinary tract symptoms; H91.90 Unspecified hearing loss, unspecified ear; E78.5 Hyperlipidemia, unspecified
CPT/HCPCS: 36415; 87077; 99153; G0500; J2250; J3010; J7121